=== PATIENT | female | born 1970 | race Caucasian/White ===

== ENCOUNTER 2016-09-30 10:25 | Emergency (ER) | payer OTHER ==
[2016-09-30 10:30] VITALS: BP 144/91; PULSE 88; RESP 20; TEMP 98.3
--- NOTE | 2016-09-30 10:50 | ED ---
General Adult HPI - General Chief complaint: Skin/Abscess/Foreign Body Stated complaint: HEMORRHOIDS Time Seen by Provider: 09/30/16 10:32 Source: patient, RN notes reviewed Mode of arrival: ambulatory Limitations: no limitations - History of Present Illness Initial comments: Patient's a 46-year-old female who presents emergency room today with a chief complaint of increased hemorrhoid pain. She does admit that over the last 9 days she's been having hemorrhoids. She states to a ruptured on their own but still having a third. States she has seen surgery in the past for this. Patient states that she's been using [id number]-[id number] medications with only little relief of the symptoms. Patient denies any other complaints or symptoms. Patient denies any recent fever, chills, shortness of breath, chest pain, back pain, abdominal pain, nausea or vomiting, numbness or tingling, dysuria or hematuria, constipation or diarrhea, headaches or visual changes, or any other complaints. - Related Data Home Medications Medication Instructions Recorded Confirmed Multivitamin [Multivitamins] 1 each PO DAILY 06/23/13 12/25/15 DULoxetine HCL [Cymbalta] 90 mg PO HS 03/02/14 12/25/15 Omeprazole [PriLOSEC] 20 mg PO HS 03/02/14 12/25/15 clonazePAM [KlonoPIN] 1 mg PO HS 03/02/14 12/25/15 traZODone HCL [Desyrel] 50 mg PO HS 03/02/14 12/25/15 Losartan [Cozaar] 1 tab PO DAILY 03/25/15 12/25/15 Montelukast Sodium [Singulair] 10 mg PO DAILY 03/25/15 12/25/15 Dicyclomine [Bentyl] 10 mg PO TID 12/25/15 12/25/15 Fluticasone Nasal Shepherd [Flonase 1 spray EA NOSTRIL DAILY 12/25/15 12/25/15 Nasal Shepherd] Previous Rx's Medication Instructions Recorded HYDROcodone/APAP 5-325MG [[place] 1 - 2 tab PO Q6HR PRN #15 tab 03/25/15 5-325] Ibuprofen [Motrin] 600 mg PO Q6HR PRN #20 tab 03/25/15 Hydrocortisone Acetate [Anusol-Hc] 25 mg RC DAILY #20 supp.rect 09/30/16 Hydrocortisone Pr Cream 1 applic RECTAL TID #1 tube 09/30/16 [Proctosol-Hc 2.5%] Allergies Allergy/AdvReac Type Severity Reaction Status Date / Time sulfamethoxazole Allergy Rash/Hives Verified 09/30/16 10:30 [From Bactrim] trimethoprim [From Bactrim] Allergy Rash/Hives Verified 09/30/16 10:30 Review of Systems ROS Statement: Those systems with pertinent positive or pertinent negative responses have been documented in the HPI. ROS Other: All systems not noted in ROS Statement are negative. Past Medical History Past Medical History: Hypertension Additional Past Medical History / Comment(s): stress incontinence,IBS, migraines , kidney stones History of Any Multi-Drug Resistant Organisms: None Reported Past Surgical History: Adenoidectomy, Breast Surgery, Hysterectomy, Tonsillectomy Additional Past Surgical History / Comment(s): D & C, rosalba breast reduction, rosalba carpal tunnel, laproscopy x 2 for endometriosis, Past Anesthesia/Blood Transfusion Reactions: No Reported Reaction Past Psychological History: Depression Smoking Status: Current some day smoker Past Alcohol Use History: Occasional Past Drug Use History: None Reported - Past Family History Father Family Medical History: Hypertension Additional Family Medical History / Comment(s): Kidney stones Mother Family Medical History: Hypertension Additional Family Medical History / Comment(s): Kidney stones. General Exam - General Exam Comments Initial Comments: General: The patient is awake and alert, in no distress, and does not appear acutely ill. Eye: Pupils are equal, round and reactive to light, extra-ocular movements are intact. No nystagmus. There is normal conjunctiva bilaterally. No signs of icterus. Ears, nose, mouth and throat: There are moist mucous membranes and no oral lesions. Neck: The neck is supple, there is no tenderness or JVD. Cardiovascular: There is a regular rate and rhythm. No murmur, rub or gallop is appreciated. Respiratory: Lungs are clear to auscultation, respirations are non-labored, breath sounds are equal. No wheezes, stridor, rales, or rhonchi. Gastrointestinal: Soft, non-distended, non-tender abdomen without masses or organomegaly noted. There is no rebound or guarding present. No CVA tenderness. Bowel sounds are unremarkable. Musculoskeletal: Normal ROM, no tenderness. Strength 5/5. Sensation intact. Pulses equal bilaterally 2+. Neurological: A&O x 3. CN II-XII intact, There are no obvious motor or sensory deficits. Coordination appears grossly intact. Speech is normal. Skin: Skin is warm and dry and no rashes or lesions are noted. Psychiatric: Cooperative, appropriate mood & affect, normal judgment. : [employer]END[employer] Leanne present for exam 1 cm nonthrombosed hemorrhoid located on the left. Limitations: no limitations Course Vital Signs 09/30/16 10:28 Temperature 98.3 F Pulse Rate 88 Respiratory 20 Rate Blood Pressure 144/91 O2 Sat by Pulse 98 Oximetry Medical Decision Making - Medical Decision Making Patient advised to continue high-fiber diet use stool softener. Advised follow- up with surgeon over the next 1-2 days. Disposition Clinical Impression: Hemorrhoid Disposition: HOME SELF-CARE Condition: Good Instructions: Hemorrhoids (ED) Additional Instructions: Please use medication as discussed. Please follow-up with general surgeon/ family doctor in the next 2 days of symptoms have not improved. Please return to emergency room if the symptoms increase or worsen or for any other concerns. Prescriptions: Hydrocortisone Acetate [Anusol-Hc] 25 mg RC DAILY #20 supp.rect Hydrocortisone Pr Cream [Proctosol-Hc 2.5%] 1 applic RECTAL TID #1 tube Referrals: Farhat Menjivar MD [Primary Care Provider] - 1-2 days Time of Disposition: 10:50
== END 2016-09-30 11:09 | disposition home or self-care (01) ==
LOC: EC 10:25
DX: K64.9 Unspecified hemorrhoids (principal); I10 Essential (primary) hypertension; K58.9 Irritable bowel syndrome, unspecified; F32.9 Major depressive disorder, single episode, unspecified; F17.200 Nicotine dependence, unspecified, uncomplicated; Z79.51 Long term (current) use of inhaled steroids; Z79.899 Other long term (current) drug therapy; Z88.2 Allergy status to sulfonamides
CPT/HCPCS: 99282

== ENCOUNTER → 2016-12-30 | Outpatient (CLI) | payer OTHER ==
--- NOTE | 2017-01-01 10:45 | MM ---
Reason for exam: screening (asymptomatic). Last mammogram was performed 1 year and 1 month ago. History: Patient had first child at age 41. Reductions of both breasts, 2004. Took hormonal contraceptives for 27 years beginning at age 14. Physical Findings: A clinical breast exam by your physician is recommended on an annual basis and results should be correlated with mammographic findings. MG 3D Screening Mammo W/Cad Bilateral CC and MLO view(s) were taken. Prior study comparison: December 05, 2015, bilateral MG 3d diag mammo w/cad DENIS. June 23, 2013, bilateral MG screening mammo w CAD. There are scattered fibroglandular densities. Benign skin calcifications anteriorly on both sides. No significant changes when compared with prior studies. ASSESSMENT: Negative, BI-RAD 1 RECOMMENDATION: Routine screening mammogram of both breasts in 1 year.
== END | disposition home or self-care (01) ==
LOC: RADMAMWWP 08:27
PROVIDERS: ATTEND Obstetrics & Gynecology
DX: Z12.31 Encounter for screening mammogram for malignant neoplasm of breast (principal)
CPT/HCPCS: 77063; G0202

== ENCOUNTER → 2018-04-20 | Outpatient (CLI) | payer OTHER ==
--- NOTE | 2018-04-21 11:33 | MM ---
Reason for exam: screening (asymptomatic). Last mammogram was performed 1 year and 4 months ago. History: Patient had first child at age 41. Reductions of both breasts, 2004. Took hormonal contraceptives for 27 years beginning at age 14. Physical Findings: A clinical breast exam by your physician is recommended on an annual basis and results should be correlated with mammographic findings. MG 3D Screening Mammo W/Cad Bilateral CC and MLO view(s) were taken. Prior study comparison: December 30, 2016, bilateral MG 3d screening mammo w/cad. December 05, 2015, bilateral MG 3d diag mammo w/cad DENIS. The breast tissue is heterogeneously dense. This may lower the sensitivity of mammography. There are benign appearing round calcifications bilaterally. There is no discrete abnormality. ASSESSMENT: Benign, BI-RAD 2 RECOMMENDATION: Routine screening mammogram of both breasts in 1 year.
== END ==
LOC: RADMAMWWP 08:44
PROVIDERS: ATTEND Obstetrics & Gynecology
DX: Z12.31 Encounter for screening mammogram for malignant neoplasm of breast (principal)
CPT/HCPCS: 77063; 77067

== ENCOUNTER → 2018-10-21 | Outpatient (CLI) | payer OTHER ==
--- NOTE | 2018-10-21 15:30 | XR ---
EXAMINATION TYPE: XR cervical spine limited DATE OF EXAM: 10/21/2018 COMPARISON: NONE HISTORY: 48-year-old female right lower neck stiffness for a few weeks TECHNIQUE: 3 views FINDINGS: No predental space widening or prevertebral soft tissue swelling. Alignment is maintained. There may be mild disc space narrowing at T1-T2. Mild uncovertebral joint spurring lower cervical spine. Normal odontoid view. IMPRESSION: Mild uncovertebral joint degenerative change lower cervical spine. No malalignment or prevertebral so ft tissue swelling.
[2018-10-21 19:42] LABS: T4, Free (Free Thyroxine) 0.9 ng/dL (0.80-1.80)
== END | disposition home or self-care (01) ==
LOC: LABWHC1 12:50
PROVIDERS: ATTEND Family Medicine
DX: M47.812 Spondylosis without myelopathy or radiculopathy, cervical region (principal); F33.0 Major depressive disorder, recurrent, mild; R51 Headache; I10 Essential (primary) hypertension
CPT/HCPCS: 36415; 72040; 84439; 84443; 84481

== ENCOUNTER → 2018-11-29 | Outpatient (CLI) | payer OTHER ==
[2018-11-29 17:55] LABS: Gliadin AB IgA, Deaminated POSITIVE (NEGATIVE); Gliadin AB IgA, Unit 135.7 U/mL; Gliadin AB IgG, Deaminated POSITIVE (NEGATIVE)
== END | disposition home or self-care (01) ==
LOC: LABWHC1 08:56
PROVIDERS: ATTEND Nurse Practitioner Family
DX: R10.9 Unspecified abdominal pain (principal)
CPT/HCPCS: 36415; 83516

== ENCOUNTER → 2020-03-28 | Outpatient (CLI) | payer BC ==
--- NOTE | 2020-03-29 13:41 | MM ---
Reason for exam: screening (asymptomatic). Last mammogram was performed 1 year and 11 months ago. History: Patient had first child at age 41. Reductions of both breasts, 2004. Took hormonal contraceptives for 27 years beginning at age 14. Physical Findings: A clinical breast exam by your physician is recommended on an annual basis and results should be correlated with mammographic findings. MG Screening Mammo w CAD Bilateral CC and MLO view(s) were taken. Prior study comparison: April 20, 2018, bilateral MG 3d screening mammo w/cad. December 30, 2016, bilateral MG 3d screening mammo w/cad. The breast tissue is heterogeneously dense. This may lower the sensitivity of mammography. There are benign appearing regional, round calcifications bilaterally. Asymmetric breast tissue left subareolar breast. There is no discrete abnormality. ASSESSMENT: Benign, BI-RAD 2 RECOMMENDATION: Routine screening mammogram of both breasts in 1 year.
== END | disposition home or self-care (01) ==
LOC: RADMAMWWP 16:22
PROVIDERS: ATTEND Obstetrics & Gynecology
DX: Z12.31 Encounter for screening mammogram for malignant neoplasm of breast (principal); Z80.3 Family history of malignant neoplasm of breast
CPT/HCPCS: 77067

== ENCOUNTER → 2020-11-08 | Outpatient (CLI) | payer OTHER ==
[2020-11-08 13:53] LABS: Basophils # (A) 0.1 k/uL (0-0.2); Basophils % (A) 1 %; Eosinophils # (A) 0.2 k/uL (0-0.7); Eosinophils % (A) 3 %; HCT 43.9 % (34.0-46.0); HGB 14.6 gm/dL (11.4-16.0); Lymphocytes # (A) 1.6 k/uL (1.0-4.8); Lymphocytes % (A) 21 %; MCH 33.1 pg (25.0-35.0); MCHC 33.2 g/dL (31.0-37.0); MCV 99.7 fL (80.0-100.0); Monocytes # (A) 0.4 k/uL (0-1.0); Monocytes % (A) 6 %; Neutrophils # (A) 5.2 k/uL (1.3-7.7); Neutrophils % (A) 68 %; Platelet Count 399 k/uL (150-450); RDW 12.5 % (11.5-15.5); WBC 7.6 k/uL (3.8-10.6)
--- NOTE | 2020-11-08 14:00 | CT ---
EXAMINATION TYPE: CT abdomen pelvis wo con DATE OF EXAM: 11/08/2020 COMPARISON: 09/25/2014 INDICATION: Right flank pain DLP: 1034 mGycm, Automated exposure control for dose reduction was used. CONTRAST: 0 mL of Isovue 300. Study performed without Oral Contrast TECHNIQUE: Axial images were obtained from above the diaphragm to the pubic rami in the axial plane a t 5 mm thick sections. Reconstructed images are reviewed on the computer in the coronal plane. FINDINGS: Limited CT sections are obtained the lung bases. The lung bases are clear. CT ABDOMEN: Liver: Normal Spleen: Normal Pancreas: Normal Adrenal glands: The adrenal glands are normal. Gallbladder: Normal Kidneys: No masses are evident. No hydronephrosis is present. No cysts are present. Multiple bilat eral renal stones are present. The large calcification superior pole left kidney measures 0.3 cm. The largest on the right inferior pole as well as the superior pole measures 0.3 cm. Multiple additional nonobstructing renal stones are also present, small 0.3 cm. Aorta: Vascular calcification is within the aorta. Inferior vena cava: Normal. CT PELVIS: Loops of bowel within the abdomen and pelvis are normal. The study is without oral contrast limit ing evaluation. Appendix: Not identified. No dilated tubular structure or inflammatory changes are evident. Urinary bladder: Normal. Genitourinary structures: Uterus and ovaries are not identified. Osseous structures: No suspicious lytic or sclerotic lesions. IMPRESSIONS: 1. Multiple bilateral nonobstructing renal stones. The largest calcifications in the bilateral kidne ys each measure 0.3 cm.
[2020-11-08 14:04] LABS: Potassium 4.4 mmol/L (3.5-5.1)
== END | disposition home or self-care (01) ==
LOC: RADCTMAIN 12:52
PROVIDERS: ATTEND Family Medicine
DX: N20.0 Calculus of kidney (principal)
CPT/HCPCS: 36415; 74176; 80048; 85025

== ENCOUNTER → 2021-01-10 | Outpatient (CLI) | payer OTHER ==
--- NOTE | 2021-01-11 06:08 | MR ---
EXAMINATION TYPE: MR cervical spine wo con DATE OF EXAM: 01/10/2021 COMPARISON: None HISTORY: Neck pain, headaches Multiplanar multiecho imaging of the cervical spine without contrast. Vertebra have normal alignment. Disc spaces are fairly normal for age. There is a small posterior dis c herniation at C5-6 in the midline. There is developmentally adequate spinal canal. There is no spin al stenosis. Spinal canal measures 8 mm at C5-6. Brainstem is intact. Cervical spinal cord has normal signal pattern. There is no edema. There is no evidence of cervical paraspinal mass. IMPRESSION: C5-6 mild posterior disc herniation. No spinal stenosis.
== END | disposition home or self-care (01) ==
LOC: RADMRIMAIN 11:25
PROVIDERS: ATTEND Orthopaedic Surgery
DX: M50.322 Other cervical disc degeneration at C5-C6 level (principal)
CPT/HCPCS: 72141

== ENCOUNTER → 2021-02-10 | Outpatient (CLI) | payer OTHER ==
[2021-02-10 09:57] VITALS: BP 155/104; PULSE 89; RESP 18
--- NOTE | 2021-02-10 09:57 | P.PAINCN ---
History of Present Illness - Reason for Consult Consult date: 02/10/21 - History of Present Illness This is 50 years old female with a history of severe neck pain with radiation to the right upper extremity, started 3 years ago, denies any initiating event, and she reported that the pain is constant and increases with any activity, with the quality of life, seated with numbness and tingling sensation, intensity of the pain increased over time, patient done physical therapy and chiropractics with only minimal or no benefit from it, she used pain medication Motrin and Kemmerer without any benefit,she denies any change in the bowel movement or urination she denies any fever or night sweats Past Medical History Past Medical History: Hypertension Additional Past Medical History / Comment(s): stress incontinence,IBS, migraines , kidney stones History of Any Multi-Drug Resistant Organisms: None Reported Past Surgical History: Adenoidectomy, Breast Surgery, Hysterectomy, Tonsi llectomy Additional Past Surgical History / Comment(s): D & C, rosalba breast reduction, rosalba carpal tunnel, laproscopy x 2 for endometriosis, Past Anesthesia/Blood Transfusion Reactions: No Reported Reaction Past Psychological History: Depression Past Alcohol Use History: Occasional Past Drug Use History: None Reported - Past Family History Father Family Medical History: Hypertension Additional Family Medical History / Comment(s): Kidney stones Mother Family Medical History: Hypertension Additional Family Medical History / Comment(s): Kidney stones. Medications and Allergies Home Medications Medication Instructions Recorded Confirmed Type DULoxetine HCL [Cymbalta] 90 mg PO DAILY 03/02/14 09/30/16 History Omeprazole [PriLOSEC] 20 mg PO DAILY 03/02/14 09/30/16 History Losartan [Cozaar] 50 mg PO DAILY 03/25/15 09/30/16 History Montelukast Sodium [Singulair] 10 mg PO DAILY 03/25/15 09/30/16 History ALPRAZolam [Xanax] 0.25 mg PO Q8HR PRN 09/30/16 09/30/16 History Ibuprofen [Motrin] 800 mg PO Q8H PRN 09/30/16 09/30/16 History HYDROcodone/APAP 10-325MG [[place] 1 tab PO Q8H PRN 02/10/21 02/10/21 History 10-325] Meloxicam 15 mg PO DAILY 02/10/21 02/10/21 History Mirtazapine [Remeron] 30 mg PO HS 02/10/21 02/10/21 History Allergies Allergy/AdvReac Type Severity Reaction Status Date / Time sulfamethoxazole Allergy Rash/Hives Verified 02/10/21 09:44 [From Bactrim] trimethoprim [From Bactrim] Allergy Rash/Hives Verified 02/10/21 09:44 Physical Exam Vitals: Intake and Output 02/09/21 02/10/21 02/10/21 22:59 06:59 14:59 Other: Weight 96.162 kg Physical Examinations : -Constitutiona : Cooperative , not in acute distress . -HEENT : nech : supple , no Lymphadenopathy , normal thyroid size . : eyes : no ptosis , no icterus, no photophobia . - neurologic : Cranial nerve II to XII intact , no focal neurological deffecit . -psychatric : alert , oriented X 3 , appropriate affect , intact judgment and insight . -Lymphatic : no Lymphadenopathy . - musculoskeltal : Cervical Spine motor stregnth in the deltoid and biceps, normal right side , normal Left side motor stregnth biceps and the wrist extensors normal right side ,normal left side . motor stregnth in the triceps muscle . normal Right side , normal Left side deep tendon reflexes normal at the biceps , normal at Brachioradialis , normal at triceps. cervical facet loading test: Positive right Spurling test= positive Right , positive left. Neck distraction test= positive Right Radha sign= positive right . Lumber spine moter stegnth lower extremities ,thigh and legs 5/5 Right side , 5/5 Left side Results Comments: MRI of the cervical spine= C5 6 disc herniation Assessment and Plan Plan: Assessment and plan=1-cervical radiculopathy. 2-cervical disc herniation. Patient could benefit from cervical epidural steroid injection at C5 6 right paramedian approach Time with Patient: Greater than 30 PQRS Measure Charge Sheet Measure #130: Documentation of Current Meds in Medical Chart: Patient's medications documented in chart Measure #226: Tobacco Use: Screen & Cessation Intervention: Pt not a tobacco user Measure #111: Pneumonia Vaccination: Pneumococcal vaccine NOT administered or previously given Measure #47: Advance Care Plan: Advance care planning discussed & documented, pt chose/unable to give Measure #412: Opioid Treatment Agreement: No documentation of signed opioid treatment agreement Measure #408: Opioid Therapy Follow-up Evaluation: Patient had NO f/u eval minimum every 3 months during opioid therapy Measure #317: Preventitive Care & Scrn High Bld Press & F/U: Pre-hypertensive or hypertensive BP documented, pt will f/u with PCP Measure #128: Body Mass Index (BMI) Screening & Follow-up: BMI documented ABOVE normal parameters - f/u documented Measure #131: Pain Assessment & Follow-up: Pain positive & plan documented, Follow-up scheduled Measure #431: Unhealthy Alcohol Use Preventative Care & Scrn: Patient not identified as an unhealthy alcohol user PQRS Narrative: Smoking Status Current some day smoker Home Medications: Ambulatory Orders DULoxetine HCL [Cymbalta] 90 mg PO DAILY 03/02/14 Omeprazole [PriLOSEC] 20 mg PO DAILY 03/02/14 Losartan [Cozaar] 50 mg PO DAILY 03/25/15 Montelukast Sodium [Singulair] 10 mg PO DAILY 03/25/15 ALPRAZolam [Xanax] 0.25 mg PO Q8HR PRN 09/30/16 Ibuprofen [Motrin] 800 mg PO Q8H PRN 09/30/16 HYDROcodone/APAP 10-325MG [[place] 10-325] 1 tab PO Q8H PRN 02/10/21 Meloxicam 15 mg PO DAILY 02/10/21 Mirtazapine [Remeron] 30 mg PO HS 02/10/21
== END ==
LOC: PNWHC3 09:12
PROVIDERS: ATTEND Specialist
DX: M50.10 Cervical disc disorder with radiculopathy, unspecified cervical region (principal); I10 Essential (primary) hypertension; F32.A Depression, unspecified; Z79.899 Other long term (current) drug therapy; Z88.2 Allergy status to sulfonamides
CPT/HCPCS: 99202

== ENCOUNTER → 2021-04-07 | Outpatient (CLI) | payer OTHER ==
--- NOTE | 2021-04-07 13:43 | CT ---
EXAMINATION TYPE: CT cervical spine without contrast DATE OF EXAM: 04/07/2021 COMPARISON: MRI dated 01/10/2021 HISTORY: Cervicalgia. Neck pain. Surgical planning. CT DLP: 426.6 mGycm Automated exposure control for dose reduction was used. TECHNIQUE: CT scan of the cervical spine is obtained without contrast, axial images are obtained, sa gittal and coronal reformatted images are also reviewed. FINDINGS: Minimal anterolisthesis of C4 over C5, likely degenerative. No definite vertebral body collapse or ac match-e-be-n[place]she-wish band displaced fracture. Unremarkable atlantoaxial and atlantooccipital articulations. Severe right C3 -4, right C4-5 and right C5-6 facet osteoarthropathy. Right C3-4, right C4-5 and right C5-6 uncovertebral osteoarthropathy with tiny posterior osteophytosi s at C5-6 level. Bilateral T1-2 facet osteoarthropathy with milder multilevel facet osteoarthropathy. At C2-3 level: No significant central spinal canal stenosis or neuroforaminal stenosis. At C3-4 level: Severe right-sided facet osteoarthropathy, causing no significant central spinal canal stenosis and moderate right neuroforaminal stenosis. At C4-5 level: Severe right-sided facet osteoarthropathy, causing no significant central spinal canal stenosis and moderate right neuroforaminal stenosis. At C5-6 level: Posterior disc osteophyte complex, associated with right facet osteoarthropathy, causi ng mild central spinal canal stenosis and moderate right neuroforaminal stenosis. At C6-7 level: No significant bony central spinal canal stenosis or neuroforaminal stenosis. Slightly heterogeneous thyroid gland, please correlate clinically and with thyroid hormones. No lorelei sunshine lesion. Hypopneumatized right mastoid air cells. IMPRESSION: Degenerative changes of the cervical spine with multilevel severe facet osteoarthropathy and right-si ded neuroforaminal stenosis as detailed above.
== END | disposition home or self-care (01) ==
LOC: RADCTMAIN 10:39
PROVIDERS: ATTEND Orthopaedic Surgery
DX: Z01.818 Encounter for other preprocedural examination (principal); M47.812 Spondylosis without myelopathy or radiculopathy, cervical region; M48.02 Spinal stenosis, cervical region
CPT/HCPCS: 72125

== ENCOUNTER → 2021-04-28 | Outpatient (CLI) | payer OTHER | END | disposition home or self-care (01) | LOC: LABPAT 10:14 | PROVIDERS: ATTEND Orthopaedic Surgery | DX: Z01.812 Encounter for preprocedural laboratory examination (principal); M47.812 Spondylosis without myelopathy or radiculopathy, cervical region | CPT/HCPCS: 87070 ==

== ENCOUNTER → 2021-05-08 | Outpatient (CLI) | payer OTHER ==
--- NOTE | 2021-05-08 14:21 | MM ---
Reason for exam: screening (asymptomatic). Last mammogram was performed 1 year and 1 month ago. History: Patient had first child at age 41. Reductions of both breasts, 2004. Took hormonal contraceptives for 27 years beginning at age 14. Taking other hormone beginning at age 49. Physical Findings: A clinical breast exam by your physician is recommended on an annual basis and results should be correlated with mammographic findings. MG Screening Mammo w CAD Bilateral CC and MLO view(s) were taken. Prior study comparison: March 28, 2020, bilateral MG screening mammo w CAD. April 20, 2018, bilateral MG 3d screening mammo w/cad. There are scattered fibroglandular densities. Finding: There are typically benign round, regional calcifications in the anterior position of both breasts. There is no discrete abnormality. ASSESSMENT: Benign, BI-RAD 2 RECOMMENDATION: Routine screening mammogram of both breasts in 1 year.
== END | disposition home or self-care (01) ==
LOC: RADMAMWWP 08:02
PROVIDERS: ATTEND Obstetrics & Gynecology
DX: Z12.31 Encounter for screening mammogram for malignant neoplasm of breast (principal)
CPT/HCPCS: 77067

== ENCOUNTER 2021-05-09 10:38 | Day surgery (SDC) | payer OTHER ==
[2021-05-06 13:41] VITALS: BMI 35.5
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
[~2021-05-09 10:38] MED LIST: ACETAMINOPHEN TAB 500 MG TAB PO PRN; GABAPENTIN 300 MG CAP PO PRN; HYDROmorphone 0.5 MG/0.5 ML SYRINGE IVP PRN; LACTATED RINGERS 1,000 ML IV SCH; MIDAZOLAM 2 MG/2 ML VIAL IV PRN; ONDANSETRON 4 MG/2 ML VIAL IVP PRN; TRANEXAMIC ACID IN NACL,ISO-OS 1,000 MG in SALINE 1 100ML.BAG IVPB PRN
[2021-05-09 11:33] LABS: Basophils # (A) 0.1 k/uL (0-0.2); Basophils % (A) 1 %; Eosinophils # (A) 0.2 k/uL (0-0.7); Eosinophils % (A) 3 %; HGB 14.5 gm/dL (11.4-16.0); Lymphocytes # (A) 1.7 k/uL (1.0-4.8); Lymphocytes % (A) 26 %; MCH 33.4 pg (25.0-35.0); MCHC 33.6 g/dL (31.0-37.0); MCV 99.4 fL (80.0-100.0); Mean Platelet Volume 7.1; Monocytes # (A) 0.4 k/uL (0-1.0); Monocytes % (A) 6 %; Neutrophils % (A) 62 %; Platelet Count 336 k/uL (150-450); RBC 4.32 m/uL (3.80-5.40); RDW 12.1 % (11.5-15.5); WBC 6.4 k/uL (3.8-10.6)
[2021-05-09 11:40] LABS: Prothrombin Time 10.7 sec (9.0-12.0)
[2021-05-09 11:48] LABS: Calcium 9.1 mg/dL (8.4-10.2); Potassium 4.2 mmol/L (3.5-5.1)
--- NOTE | 2021-05-09 12:27 | P.PN ---
Progress Note - Text Progress Note Date: 05/09/21 History and Physical UPDATE I have seen and examined the patient and reviewed the history and physical. There appear to be no significant changes in the patient's current medical status as outlined in the current History and Physical.
[2021-05-09] MEDS ORDERED: HYDROmorphone (PF) 1 MG/ML ONE (12:39)
[2021-05-09] MEDS ORDERED: MIDAZOLAM 2 MG/2 ML VIAL ONE (12:39)
[2021-05-09] MEDS ORDERED: TRANEXAMIC ACID IN NACL,ISO-OS 1,000 MG/100 ML BAG ONE (12:39)
[2021-05-09] MEDS ORDERED: fentaNYL (PF) 50 MCG/ML 2 ML AMP ONE (12:39)
[2021-05-09] MEDS ORDERED: SUCCINYLCHOLINE CHLORIDE 100 MG/5 ML SYR IV ONE (12:39)
[2021-05-09] MEDS ORDERED: PROPOFOL 10 MG/ML 20 ML VIAL IV ONE (12:39)
[2021-05-09] MEDS ORDERED: hydrALAZINE HCL 20 MG/ML 1 ML VIAL ONE (12:39)
[2021-05-09] MEDS ORDERED: LIDOCAINE 1% INJ 10MG/ML (20 ML MDV) ONE (12:39)
[2021-05-09] MEDS ORDERED: ROCURONIUM 10 MG/ML (5 ML VIAL) IV ONE (12:39)
[2021-05-09] MEDS ORDERED: LABETALOL 5 MG/ML VIAL MDV ONE (12:39)
[2021-05-09] MEDS ORDERED: GELATIN SPONGE,ABSORB (LARGE) 1 EACH SPONGE TOPICAL ONE (13:34)
[2021-05-09] MEDS ORDERED: THROMBIN (RECOMBINANT) 5,000 UNIT VIAL TOPICAL ONE (13:40)
[2021-05-09] MEDS ORDERED: LACTATED RINGERS 1,000 ML IV ONE (14:31)
--- NOTE | 2021-05-09 14:49 | FL ---
EXAMINATION TYPE: FL guidance operating room, XR cervical spine limited DATE OF EXAM: 05/09/2021 CLINICAL HISTORY: Neck pain. TECHNIQUE: Fluoroscopy. Intraoperative limited views cervical spine. COMPARISON: CT cervical spine the 2021. FINDINGS: Fluoroscopic guidance was provided during cervical fusion procedure performed by Dr. Danni laughlin. A total of 71 seconds of fluoroscopic time was utilized during the procedure and 8 spot intra operative images are acquired. Intraoperative images obtained show placement of metallic endplate material at the C5-C6 disc space a fter partial osteotomy and presumed discectomy. Alignment is stable on the intraoperative images obta ined. IMPRESSION: As Above.
[2021-05-09 14:58] VITALS: RESP 16; TEMP 97.2
--- NOTE | 2021-05-09 15:08 | P.PN ---
Progress Note - Text Progress Note Date: 05/09/21 Postop: . Patient seen and examined they are doing well. Their pain is under control at this time. They are moving all 4 extremities without any issues. Vital signs are stable.. They are currently recovering and will be transferred to the floor once deemed stable by the PACU team and anesthesiologist. No Other issues at this time they deny fever chills shortness of breath or chest pain. [C collar in place, well fitting] spoke to ENT over the phone and recommended icing as well as avoiding chewy foods well her tongue heels she is otherwise stable for home as there is nothing for him to do for this patient will be discharged to recovery phase when stable and discharged home when stable per nursing and anesthesia in the recovery unit.
[2021-05-09] MEDS ORDERED: HYDROcodone/APAP 5-325MG 1 EACH TAB ONE (16:03)
[2021-05-09 16:29] VITALS: BP 162/98; PULSE 76
--- NOTE | 2021-05-09 16:50 | P.OP ---
Date of Procedure: 05/09/21 Preoperative Diagnosis: 1. 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 Right Upper extremity numbness 3. Right Upper extremity radiculopathy 4. Right lower extremity weakness Postoperative Diagnosis: 1. 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 Right Upper extremity numbness 3. Right Upper extremity radiculopathy 4. Right lower extremity weakness 5. Distal tip tongue bite injury Procedure(s) Performed: 1. C5-6 total disc replacement 2. Intraoperative neuromonitoring 3. Interpretation of intraoperative fluoroscopy <1 hr Implants: Pro Disc C Large Deep 6 mm Anesthesia: GETA Surgeon: Ryan Quinones Kapok Machine Operator #1: Karin Kat (Was present and assisted in opeining, positioning, implatation decompression, closure, and dressing placement) Estimated Blood Loss (ml): 50 IV fluids (ml): 500 Urine output (ml): 0 Pathology: none sent Condition: stable Disposition: PACU Indications for Procedure: viri Romero is presenting for evaluation of cervical pain. It was my pleasure to have seen and examined Nafisa Romero. In our visit today we have had a chance to go over subjective complaints, physical examination findings and treatments including the natural course history without intervention and various interventional options. The patients imaging demonstrates Xray: overall alignment is fairly well maintained. There is facet arthropathy that is noted from C2 to C4 on the right hand side was worse than on the left-hand side. There are no fractures or dislocations. Coronal and sagittal alignment is maintained. MRI: This is reviewed and demonstrates large HNP that appears A/C in nature with moderate to severe central and b/l foraminal stenosis at C5-6 noted. There is no myelomalacia at this time, however this is cord contact and displacement. NO fractures or other dislocations noted. Remaining levels within reasonable limits. On physical exam, Nafisa Romero demonstrates C5-C6 dermatomal deficit with hyperreflexia along with upper and lower extremity weakness. I have explained to the patient that as their condition progresses it will cause further neurological deficits and eventual paralysis. Based on the patients imaging, physical exam, and the rapid progression and disabling nature of their symptoms, at this time I recommend surgery in the form or a: C5-C6 disc replacement . I discussed the risk and benefits of this procedure at length with Nafisa Romero. The patient agreed to considered pursuing the procedure abovementioned. Prior to surgery, she should follow up with her PCP (Cardio, ID, IM etc) for clearance. Questions were invited and answered, and the patient wishes to proceed as outlined below. Currently, I am recommendin.C5-C6 disc replacement 2.Follow up with PCP for surgical clearance 3.Review of surgical risks and benefits as well as an educational packet on the proposed surgical procedure. Description of Procedure: The patient was seen and examined in the preoperative area. All preoperative protocols were followed. Informed consent was obtained risks and benefits of the procedure were discussed at length. Risks including bleeding infection damage to the surrounding tissue and risk of reoperation were discussed with the patient. Risk of anesthesia up to and including was a discussed with the patient. These are outlined in the risk review. They were willing to accept these risks and all of the risks of surgery. The patient was given a weight- based dose of antibiotics in the form of Ancef 2 g. The patient was seen and evaluated by the anesthesia team who deemed them fit for surgery. The site was marked, the patient was willing to proceed with the procedure. The patient was transferred to the operative suite by the Department of anesthesia. They were then drifted off to sleep by the department anesthesia and GETA was performed. The patient tolerated this well. Once confirmation of lines and ventilation the patient was transferred to a supine on the flattop Marcial table. Shoulder roll was placed and the shoulders were taped gently down.. All bony prominences including wrists, elbows, axilla, chest, hips, and thighs, and feet were padded very well. Special attention was paid to the genitalia and these were padded accordingly. SCDs were placed on bilateral lower extremities and were connected. Arms were well padded and placed placed at her side thumbs up well-padded. Once in position, again we confirmed good ventilation capabilities and that lines were running appropriately. The patient's anterior cervical spine was then exposed. 1010s were placed outlining the incision site. Standard alcohol was used to clean the incision site and allowed to dry. C-arm was used to biomark the patient and confirm level for incision which was marked with a skin marker. Operative briefing was performed with all teams and everyone in agreement to proceed. The patient was then prepped and draped in a normal sterile fashion. Timeout was then performed and all parties were in agreement with the procedure to be performed. Transverse skin incision was then made over the previously marked area and a standard right-sided Linn-Lopez approach to the cervical spine was performed. Dissection was taken down subcutaneously and a transverse incision was made in the platysma muscle. Then developed a plane between the strap muscles and the SCM laterally and palpated for the carotid artery and to get laterally. We then dissected down to the anterior longitudinal ligament ligament using Kitners. We then used a blunt probe and lateral fluoroscopic image to confirm our level of interest. We confirmed C5-C6. This was then marked with the Bovie. We then performed dissection subperiosteal dissection of the C5-C6 space making sure to visualize the uncovertebral joints bilaterally. We took care not to violate the level above or below. Under fluoroscopic guidance was then placed parallel pins in the C5 and C6 respectively we then placed the distractor and perform parallel distraction. Lambert rongeur was used to remove the bulk of the intervertebral disc at this level the disc had somewhat delaminated from the vertebral body here and there was a large disc herniation. Then used curettes for removal of the disc and scraping of the endplates to remove any cartilaginous material. We made sure the endplates were completely bare but relatively unviolated we performed minimal burring of the uncovertebral joints to allow for a squared off disc space. We then performed minimal drilling of the posterior aspect of this inferior endplate of C5 posteriorly to remove the disc osteophyte complex in this region. 60 up-biting curette was then used to enter the PLL and the PLL was then resected using 6 up- biting curette and 3 Kerrison. Follow-up performed bilateral foraminotomies using Kerrison rongeur. The perform meticulous hemostasis as well. We then used a sizer and lateral fluoroscopic imaging to size the implants to a large deep. We then took an AP image with the guide in place to ensure that it was midline and correctly rotated. Once we confirmed this with an performed a caref ul burring under lateral fluoroscopic guidance of the leah. Once this was performed with then passed the chisel over the guide in the leah to ensure a good cut. The guide was then removed and we cleaned the leah with the keel hall cleaner. We then irrigated copiously the disc space placed FloSeal the posterior lateral areas to ensure hemostasis. Motors were run and they were stable. We then selected the implants and impacted into place under lateral fluoroscopic guidance once it was in good position the web application tester was removed. The [place] pins were then removed and bone wax placed in the void was placed bone wax over any open areas of bone anteriorly. We placed FloSeal in the posterior lateral gutters and irrigated the area. Final AP and lateral fluoroscopic images were taken confirming good placement of the hardware and good maintenance of anatomy. Motors were run again and they were stable. We then copiously irrigated the wound with normal sterile saline. Surgicel was placed deep within the wound. We then proceeded with layered closure first the platysma with 3-0 Vicryl low by 3-0 Vicryl in the subcu tissue followed by 40 strata fix and the subcuticular tissue. The wound was then cleaned and sterilely dressed with exofin tape and glue. The glue was allowed to dry and then a dressing was placed of Telfa and Tegaderm. It was noted after the drapes were removed that there was a laceration to the patient's tongue distally due to bite block misplacement. ENT was consult did and we discussed the case with them they stated that there was no need for any intervention and that the patient should avoid chewing foods for a while and use ice to help with pain and that it would eventually heal. The patient was transferred back to their hospital bed atraumatically. Patient was then awakened and extubated by the department of anesthesia having tolerated the procedure very well with no complications. They were transferred to the postoperative care unit in stable condition.
== END 2021-05-09 16:58 | disposition home or self-care (01) ==
LOC: OR 10:38 → EDSTATUS 12:30 → OR 16:58
PROVIDERS: ATTEND Orthopaedic Surgery
DX: M47.22 Other spondylosis with radiculopathy, cervical region (principal); S01.552A Open bite of oral cavity, initial encounter; M25.78 Osteophyte, vertebrae; Z90.710 Acquired absence of both cervix and uterus; K21.9 Gastro-esophageal reflux disease without esophagitis; M19.90 Unspecified osteoarthritis, unspecified site; N39.3 Stress incontinence (female) (male); K58.9 Irritable bowel syndrome, unspecified; G43.909 Migraine, unspecified, not intractable, without status migrainosus; Z87.442 Personal history of urinary calculi; K90.0 Celiac disease; F41.9 Anxiety disorder, unspecified; F43.0 Acute stress reaction; F32.A Depression, unspecified; F17.210 Nicotine dependence, cigarettes, uncomplicated; Z98.890 Other specified postprocedural states; Z82.49 Family history of ischemic heart disease and other diseases of the circulatory system; Z84.1 Family history of disorders of kidney and ureter; Z79.899 Other long term (current) drug therapy; Z79.1 Long term (current) use of non-steroidal anti-inflammatories (NSAID); Z79.891 Long term (current) use of opiate analgesic; Z88.2 Allergy status to sulfonamides
CPT/HCPCS: 86900; 86901; 80048; 85025; 85610; 86850; 72040; 36415; 22856; C1713; C1762; J2250; J0360; J0690; J2405; J2001; J3010; J1170 ×2; J0330; J2704

== ENCOUNTER 2021-06-06 19:09 | Day surgery (SDC) | payer OTHER ==
--- NOTE | 2021-06-06 11:11 | P.HPOR ---
History of Present Illness H&P Date: 06/06/21 Chief Complaint: Wound dehiscence w/o infection 50 yo female presented to my office yesterday with c/o her anterior wound opening up on the latera aspect. There has been no drainage or purulence form this. She was seen PO week2 with some healing issues however these have become worse and her skin has essentially not healed now after her TDR. She is otherwise doing very well w/o neck or arm pain. C/o no fever, chills or other issues. There is no drainage from the wound but the skin edges have opened up on the latera aspect and need to be repaired. She has no issues with swallowing or speech. Review of Systems 14 points review of systems completed and as stated in HPI, all other systems reviewed are negative. All systems: negative Constitutional: Reports as per HPI Past Medical History Past Medical History: Hypertension Additional Past Medical History / Comment(s): stress incontinence,IBS, polo liv, kidney stones History of Any Multi-Drug Resistant Organisms: None Reported Past Surgical History: Adenoidectomy, Breast Surgery, Hysterectomy, Tonsillectomy Additional Past Surgical History / Comment(s): D & C, rosalba breast reduction, rosalba carpal tunnel, laproscopy x 2 for endometriosis, Past Anesthesia/Blood Transfusion Reactions: No Reported Reaction Past Psychological History: Depression Smoking Status: Never smoker Additional Past Alcohol Use History / Comment(s): some day smoker-states 1-2 cigarrettes if she is out and having a drink. - Past Family History Father Family Medical History: Hypertension Additional Family Medical History / Comment(s): Kidney stones. Mother Family Medical History: Hypertension Additional Family Medical History / Comment(s): Kidney stones. Medications and Allergies Home Medications Medication Instructions Recorded Confirmed Type DULoxetine HCL [Cymbalta] 90 mg PO QAM 03/02/14 05/06/21 History Omeprazole [PriLOSEC] 20 mg PO QAM 03/02/14 05/06/21 History Losartan [Cozaar] 50 mg PO QAM 03/25/15 05/06/21 History Montelukast Sodium [Singulair] 10 mg PO DAILY 03/25/15 05/06/21 History ALPRAZolam [Xanax] 0.25 mg PO Q8HR PRN 09/30/16 05/06/21 History Ibuprofen [Motrin] 800 mg PO Q8H PRN 09/30/16 05/06/21 History HYDROcodone/APAP 10-325MG [[place] 1 tab PO Q8H PRN 02/10/21 05/06/21 History 10-325] Meloxicam 15 mg PO DAILY 02/10/21 05/06/21 History Mirtazapine [Remeron] 30 mg PO HS 02/10/21 05/06/21 History Progesterone, Micronized 200 mg PO HS 05/06/21 05/06/21 History [Progesterone] Cyclobenzaprine [Flexeril] 5 mg PO TID #90 tablet 05/09/21 Rx Gabapentin 300 mg PO BID #90 cap 05/09/21 Rx HYDROcodone/APAP 5-325MG [[place] 1 tab PO Q4HR PRN #56 tab 05/09/21 Rx 5-325] Indomethacin 25 mg PO BID #30 capsule 05/09/21 Rx cefaDROXiL [Duricef] 500 mg PO Q12HR 3 Days #6 cap 05/09/21 Rx Allergies Allergy/AdvReac Type Severity Reaction Status Date / Time sulfamethoxazole Allergy Rash/Hives Verified 05/06/21 13:20 [From Bactrim] trimethoprim [From Bactrim] Allergy Rash/Hives Verified 05/06/21 13:20 Physical Examination Osteopathic Statement: *. No significant issues noted on an osteopathic structural exam other than those noted in the History and Physical/Consult. PHYSICAL EXAMINATION: Vitals: Stable General: Awake, alert, appropriate for age, in no acute distress. HEENT: No unusual neck masses around region of lateral neck triangle, thyroid, supraclavicular groove. Extremities: Skin warm and dry without no acute lesions, coloration, temperature, skin intact, no tenderness or erythema. Integument: Hairy patches: Absent Dorsal skin dimples: Absent Cafe au lait spots: Absent Surgical incisions: Wound dehiscence about the lateral aspect of the anterior cervical spine wound. There is no purulence or drainage from this area but the skin edges have dehisced and there is visible suture deep in this area. No evidence of infection. Palpation: No tenderness to palpation VASCULAR STATUS : Wrist Pulses: 2/4 bilateral radial and ulnar Pedal Pulses: 2/4 bilateral DP and PT Color: Normal Edema: None NEUROLOGIC EXAMINATION: Mental Status: Awake and alert, fully oriented, with normal attention, concentration and memory, and fluent, appropriate speech. Cranial Nerves: I: Olfactory not tested. II: Visual acuity normal, no visual field deficit noted with confrontation. III,IV: Normal pupillary reflexes & intact extraocular movements without nystagmus. V,: Intact symmetrical facial sensation. VII: Intact symmetrical facial motor movement VIII: Hearing intact. IX,X: Intact gag, swallow, & normal voice. XI: Sternocleidomastoid, trapezius function intact. XII: Tongue midline with normal movements. Special Tests: L'hermitte's Sign: Absent Spurling'Sign: Absent Bilateral Cubital percussion test: Absent Bilateral Parviz-Tinel sign - Carpal region: Absent Bilateral Straight Leg Raising: Absent Bilateral Motor Exam (0-5/5, N/T) STRENGTH UPPER EXTREMITY Shoulder Abd (Not part of ELIN Motor score): RIGHT 5 LEFT 5 Elbow Flexors: RIGHT 5 LEFT 5 Elbow Extensor: RIGHT 5 LEFT 5 Wrrist Dorsiflexors: RIGHT 5 LEFT 5 Finger Abductor: RIGHT 5 LEFT 5 Syrup Maker: RIGHT 5 LEFT 5 LOWER EXTREMITY Hip Flexor (Not part of ELIN Motor Score): RIGHT 5 LEFT 5 Knee Flexor: RIGHT 5 LEFT 5 Knee Extensor: RIGHT 5 LEFT 5 Ankle Dorsiflexion: RIGHT 5 LEFT 5 Ankle Plantarflexion: RIGHT 5 LEFT 5 EHL: RIGHT 5 LEFT 5 FHL: RIGHT 5 LEFT 5 ELIN Motor Score: RIGHT 50/50 LEFT 50/50 REFLEXES Biecp: RIGHT 2 LEFT 2 Tricep: RIGHT 2 LEFT 2 Brachioradialis: RIGHT 2 LEFT 2 Patellar: RIGHT 2 LEFT 2 Achilles: RIGHT 2 LEFT 2 Pathological Reflexes Sampson's: RIGHT Absent LEFT Absent Babinski: RIGHT Absent LEFT Absent Clonus: RIGHT None LEFT None SENSORY Joint Position: Intact bilaterally Vibration Intact bilaterally Pain and LT sense Intact C5-T1 and L2-S1 Dermatomal deficit None Results Labs pending. X-rays from office demonstrate good placement of hardware with no other issues noted. Assessment and Plan Assessment: 50-year-old female status post C5-C6 TDR with wound dehiscence Plan: Spine Surgery Risk Review Nafisa Romero is a 50-year-old female presenting for evaluation of postoperative wound dehiscence. It was my pleasure to have seen and examined Nafisa. In our visit today we have had a chance to go over subjective complaints, physical examination findings and treatments including the natural course history without intervention and various interventional options. The patients imaging demonstrates well-placed C5-C6 total disc replacement no issues. On physical exam, Nafisa demonstrates surgical wound dehiscence on the lateral aspect of the anterior wound approximately 1 cm. I have explained to the patient that as their condition progresses it will cause further neurological deficits and eventual paralysis. Based on the patients imaging, physical exam, and the rapid progression and disabling nature of their symptoms, at this time I recommend surgery in the form or a: Wound revision irrigation debridement and primary closure. I discussed the risk and benefits of this procedure at length with Nafisa. The patient agreed to considered pursuing the procedure abovementioned. Prior to surgery, she should follow up with her PCP (Cardio, ID, IM etc) for clearance. Questions were invited and answered, and the patient wishes to proceed as outlined below. Currently, I am recommendin. Wound revision irrigation debridement and primary closure 2. Follow up with PCP for surgical clearance 3. Review of surgical risks and benefits as well as an educational packet on the proposed surgical procedure. Risks: All surgical procedures come with inherent risks, including those related to positioning, anesthesia, intraoperative findings, and postoperative complications. It is important to understand that surgery does not come with any guarantee of a successful outcome as complications and adverse events are always possible. The patient was given a handout in office today discussing the surgical procedure and risks associated with the intervention, both of which were discussed with the patient. These risks include but are not limited to the following: * Experiencing same, different or even worse symptoms in back, neck, arms, or legs compared to before surgery. * Requiring further surgery or other forms of treatment presently or at some time in the future at same or other levels of the intended spine surgery. * On an extreme but fortunately relatively rare basis severe complication such as blindness, stroke, heart attack, temporary and/or permanent nerve injury, paralysis, coma, or may occur, sometimes without known explanation. * Surgical complications may include but are not limited to risk of infection, fluid accumulation in the surgical dissection site, including a seroma or hematoma, that requires additional surgery, wound drainage, bleeding, new numbness or weakness, vision changes/loss, spinal fluid leakage, non-healing and/or infected incision, headaches, difficulty or inability to swallow, hoarseness, hemopneumothorax, pneumothorax, impotence, retrograde ejaculation, vaginal dryness; injury to nerves, spinal cord, blood vessels, lymphatics or other vital organs (i.e., bowel injury, injury to the great vessels); heterotopic bone formation; complications related to the hardware such as screws, rods, cages including misplaced hardware, device failure, instrumentation at the wrong spine level, hardware fracture/breakage, or hardware loosening; vertebral failure of the spinal column above or below the newly placed hardware; retained surgical instrumentations or devices and the need for further surgery. * Medical risks of the planned spine surgery include but are not limited to generalized Infections to the whole body or local areas outside of the surgical site (sepsis), heart attack, bleeding, anaphylaxis, meningitis, seizu re, epilepsy, hearing loss, burn salazar, laceration of the head or other areas of the body, bruising, hypersensitivity of the skin, bladder over distension; allergic reaction; shoulder injury related to positioning; fat, blood and air clots to other areas of the body like heart, lungs, brain; failure of internal organs such as lungs, kidneys, liver and excessive bleeding. If blood transfusions are necessary, note that transfusions may cause intolerance reactions such as anaphylaxis or other complex reactions. * Despite best efforts, the results of spine surgery might not heal in terms of bone, soft tissues such as skin, fascia, ligaments, and joints. Additionally, in order to achieve best possible results, spine surgery may be carried out beyond the initially planned levels and involve decompression, fusion including insertion of hardware at levels other than the original intended area of surgical interest change some portions of the procedure in order to ensure the best possible outcomes. * With spine surgery and spinal fusion, there are different off label uses of instrumentation (devices, implants and hardware) as well as biological substances (bone morphogenic proteins, demineralized bone matrix) as well as using extra bone from allograft sources (i.e. cadaver bone) or autograft (iliac crest bone, ribs, or the spine itself). The patient has been given information about these practices and their inherent risks and benefits. The patient has had a chance to review all the listed information, has been given print outs detailing this information, and has had all his/her questions answered to their satisfaction. It was my pleasure to have seen and examined Nafisa. In our visit today we have had a chance to go over my understanding of our patient's current condition, the natural course history without intervention and various interventional options. Questions were invited and answered, and the patient wishes to proceed as outlined above. I have seen and examined the patient for 25 minutes and we have spent more than 50% of the time in repeat and detailed counseling about the patient's condition, its natural course history with out and as much as can be predicted with surgery and re-review of various surgical treatment options. In conclusion, Nafisa Romero and her requested we proceed with the above suggested surgery and are willing to accept risks and limitations of the suggested surgery as nature of the disease process and our best attempts at treatment for the condition. Thank you again for allowing us to be part of your patient's care. Please don't hesitate to contact me if you have any further questions. Signed and authenticated by: Ryan Abernathy [facility] [address] [facility], [address] [address]
[2021-06-06 12:35] LABS: Basophils # (A) 0.1 k/uL (0-0.2); Basophils % (A) 1 %; Eosinophils # (A) 0.3 k/uL (0-0.7); Eosinophils % (A) 4 %; HCT 42.8 % (34.0-46.0); Lymphocytes # (A) 1.6 k/uL (1.0-4.8); Lymphocytes % (A) 23 %; MCH 32.4 pg (25.0-35.0); MCHC 32.8 g/dL (31.0-37.0); MCV 98.9 fL (80.0-100.0); Mean Platelet Volume 7.1; Monocytes # (A) 0.4 k/uL (0-1.0); Monocytes % (A) 6 %; Neutrophils # (A) 4.3 k/uL (1.3-7.7); Neutrophils % (A) 64 %; Platelet Count 308 k/uL (150-450); RBC 4.33 m/uL (3.80-5.40); RDW 12.4 % (11.5-15.5); WBC 6.8 k/uL (3.8-10.6)
[2021-06-06 12:38] LABS: INR 0.9 (<1.2); Prothrombin Time 10.1 sec (9.0-12.0)
[2021-06-06 12:58] LABS: Calcium 9.2 mg/dL (8.4-10.2); Potassium 4.2 mmol/L (3.5-5.1)
[2021-06-06] MEDS: LACTATED RINGERS 1,000 ML IV SCH (13:36)
[2021-06-06] MEDS: HYDROmorphone 0.5 MG/0.5 ML SYRINGE IVP PRN ×3 (15:30→16:01)
[2021-06-06] MEDS: HYDROcodone/APAP 5-325MG 1 EACH TAB PO PRN ×2 (17:48→22:26)
[2021-06-06] MEDS: CYCLOBENZAPRINE 5 MG TAB PO SCH ×2 (17:53→19:58)
[2021-06-06] MEDS: SODIUM CHLORIDE 0.9% 1,000 ML IV SCH (17:57)
[~2021-06-06 19:09] MED LIST changes: -ACETAMINOPHEN TAB 500 MG TAB PO PRN; +ALPRAZolam 0.25 MG TAB PO PRN; +DEXAMETHASONE SOD PHOSPHATE 4 MG/ML 1 ML VIAL IV ONE; -GABAPENTIN 300 MG CAP PO PRN; -HYDROmorphone 0.5 MG/0.5 ML SYRINGE IVP PRN; +IBUPROFEN 800 MG TAB PO PRN; +LACTATED RINGERS 1,000 ML IV ONE; -LACTATED RINGERS 1,000 ML IV SCH; +LIDOCAINE 1% INJ 10MG/ML (20 ML MDV) ONE; +MIDAZOLAM 2 MG/2 ML VIAL ONE; +ONDANSETRON 4 MG/2 ML VIAL IVP ONE; -ONDANSETRON 4 MG/2 ML VIAL IVP PRN; +PROPOFOL 10 MG/ML 20 ML VIAL IV ONE; +SCOPOLAMINE 1 MG/72 HR PATCH TRANSDERM ONE; -TRANEXAMIC ACID IN NACL,ISO-OS 1,000 MG in SALINE 1 100ML.BAG IVPB PRN; +VANCOMYCIN 1,500 MG in SODIUM CHLORIDE 0.9% 250 ML IVPB ONE; +VANCOMYCIN IV PER PHARMACY 1 EACH MISC MISCELLANE PRN; +fentaNYL (PF) 50 MCG/ML 2 ML AMP IVP ONE; +fentaNYL (PF) 50 MCG/ML 2 ML AMP ONE
[2021-06-06] MEDS: GABAPENTIN 300 MG CAP PO SCH (19:58)
[2021-06-06] MEDS ORDERED: MIRTAZAPINE 15 MG TAB PO SCH (21:00)
[2021-06-06] MEDS ORDERED: NON FORMULARY DRUG (Progesterone, Micronized [Progesterone] 200 MG Capsule) PO SCH (21:00)
[2021-06-07] MEDS ORDERED: VANCOMYCIN 1,750 MG in SODIUM CHLORIDE 0.9% 500 ML 500 ML IVPB SCH ×2
[2021-06-07] MEDS: LACTATED RINGERS 1,000 ML IV SCH (06:47)
[2021-06-07] MEDS: HYDROcodone/APAP 5-325MG 1 EACH TAB PO PRN (07:10)
[2021-06-07] MEDS: SODIUM CHLORIDE 0.9% 1,000 ML IV SCH (07:17)
[2021-06-07] MEDS ORDERED: PANTOPRAZOLE 40 MG TABLET PO SCH (07:30)
[2021-06-07 07:42] VITALS: BP 158/97; PULSE 94; RESP 18; TEMP 98.3
--- NOTE | 2021-06-07 08:19 | P.DS ---
Providers Date of admission: 06/06/21 09:04 Expected date of discharge: 06/07/21 Attending physician: Ryan Quinones DO Primary care physician: Farhat Menjivar Hospital Course: Date of admission: 06/06/2021 Date of discharge: 06/07/2021 Admission diagnosis: Wound dehiscence 4 weeks s/p C5-6 total disc replacement Discharge diagnosis: Same Attending physician: Dr. Quinones Surgical procedures: Wound revision irrigation debridement and primary closure 4 weeks s/p C5-6 total disc replacement Brief history: Patient is a 50-year-old female with a history of wound dehiscence. At this point patient has failed conservative treatment measures and has opted to proceed with a elective wound revision, irrigation and debridement and primary closure. Hospital course: Details of patient's surgery can be found in operative report. Patient tolerated the procedure well and was subsequently transported to orthopedic floor. Patient's orthopeidc and medical care was provided daily. Patient had daily laboratory tests performed for evaluation of overall blood counts. Patient had daily physical therapy to include strengthening range of motion as well as education with walker ambulation. Patient was noted to have a relatively uneventful postoperative course. Patient reported satisfactory pain control with oral pain medications by postoperative day 1. Patient showed satisfactory progress with physical therapy. Patient moved steadily through the program and had no difficulty meeting the goals by postoperative day 1. Given patient's otherwise satisfactory course and having met physical therapy goals, plan is to discharge patient home on postoperative day 1. Discharge condition/disposition: Patient will be discharged home in stable condition. Discharge medications: Instructions are given on resumption of patient's normal daily medications per primary care recommendation, in addition patient will be prescribed [place] 5 mg/325 mg; Duricef. Spine Discharge and Recovery Instructions Date of Surgery: 06/06/2021 Diagnosis: Wound dehiscence 4 weeks status post C5-6 total disc replacement Procedure: Wound revision irrigation debridement and primary closure 4 status post C5-6 total disc replacement Medications: See medication list All medication refills should be obtained through your primary care doctor or your clinic spine surgeon. Please discuss prescription refills at your follow up appointment. Do not call the hospital for medication refills. Dressing: Leave your dressing in place for a total of 5 days post operatively. Then you may remove your dressing and leave open to air. Keep the area clean and if not able to keep area clean, then cover with sterile gauze and tape. Showering: You may shower 3 days after your procedure allowing soap and water to run over incision. Do not scrub. Do not soak. Blot dry. Follow up: Please confirm a follow up appointment with your surgeon 3 weeks post operatively. Please make an appointment to follow up with your PCP in 1-2 weeks after surgery for evaluation 3 phase, 3-week plan POST OP WEEKS 1-3 1. Lifting/carrying/pushing/pulling limited to less than 5 pounds. 2. Do not sit for longer than 15 minutes at one time. Get up and walk around. Prolonged sitting is NOT advised. If you lay down, see if you can tolerate laying down on you front (belly side) 3. Walk for periods of 15 minutes = 1 mile but no longer; do it multiple times times each day. 4. Ice your low back after activity. POST OP WEEKS 3-6 1. Lifting limited to less than 20 pounds. 2. Do not sit for longer than 30 minutes at a time. Frequently change positions. Use a sit-to stand workstation or take frequent breaks from sitting if you have returned to work. 3. Walk for 30 minutes each day. If possible, do these three or more times a day POST OP WEEKS 6+ At your 6-week appointment we will give you a physical therapy referral to focus on a core stabilization and strengthening program. You should also work on leg & buttock strengthening, hamstring & quadriceps stretching, and continue a low impact aerobic activity program such as swimming, walking, or riding a stationary bicycle. During the initial 6 weeks after your surgery, you are at the highest risk of re-injuring your spine. You should generally avoid BLTs (bending, lifting and twisting combination motions) and follow the above guidelines to reduce the chance of reinjury. You can anticipate post op appointments in our office at approximately 3 weeks and 6 weeks after your surgery. INCISION CARE: If your incision is not draining you do NOT need to cover it with a dressing. Keep your incision clean, dry and intact. In most cases, we apply skin glue, ja or sutures to the incision at the time of surgery. This will be like a crust or have the appearance of a scab and will fall off in time on its own. The stitches or ja need to be removed at 3 weeks post op appointment. You may begin to shower 3 days after surgery (this allows the glue to ha well). However, please avoid scrubbing the incision site or peeling off any of the skin glue. This will ensure optimal healing of your incision. Also, during this time avoid soaking the incision area in water - this includes swimming pools, hot tubs or baths. No ointments, lotions or oils on the incision until your surgeon allows. Leave ja, sutures or glue in place. Neurological dysfunction that comes on suddenly can also be a sign of a stroke. Below some common symptoms of a stroke are listed: B - balance difficulty such as sudden onset walking or leaning to one side - NEW E - eye problem such as sudden double vision or trouble seeing on one side - NEW F - Facial weakness or numbness on one side - NEW A - Arm or leg weakness or numbness on one side - NEW S - Slurred speech or difficulty with word finding - NEW T - Time is BRAIN! Call 911 as soon as you recognize these symptoms Diet: Consume a regular diet rich in vegetables and lean protein such as chicken or fish. You should consume in a ratio of approximately 20% fats|40% carbohydrates|40%protein. Vegetables, sweet potatoes, brown rice or quinoa are examples of good carbohydrates. Chips, white bread, cookies and sweets/sugar are examples of bad carbohydrates. Limit your bad carbs, go wild with good carbs. "Life's Simple 7" Guidelines as per [place] [employer] These will help you reclaim your life after surgery and clay dry press helper in your recovery, keeping in mind your restrictions. (1) Get Active. Physical activity can help people lose weight, control high blood pressure and cholesterol, feel emotionally better, and sleep better. (2) Control Cholesterol. Avoid a diet high in saturated fat, trans fat, & chol esterol. Limit whole milk & cream, ice cream, butter, egg yolks, processed meats (like sausage and hot dogs), and fatty meats. Choose healthy foods that are low in saturated fat, trans fat and cholesterol which include: Fruits and vegetables, fiber rich grain products (like whole grain pasta and brown rice), lean meat such as chicken, fish, nuts, seeds, and legumes. (3) Eat Better. Eat small portions. Shop at the grocery with a list and do not stray from it. Tips for a healthy diet include: Limit sodium intake to less than 1500mg daily, avoid prepackaged, processed, and fast foods, choose a diet rich in fruits, vegetables, and whole grain, high fiber foods, and limit saturated & cholesterol in your diet. (4) Manage Blood Pressure. If you have high blood pressure, you should have a cuff at home so that you can check your blood pressure regularly. Be sure you have a good cuff. An arm one is generally better than a wrist one. Bring the cuff to a doctor's appointment to validate that the measurements that your cuff are taking are accurate. Take your blood pressure twice daily when you are sitting down and relaxing. Record the numbers in a log and bring this log with you to your doctors' appointments. (5) Lose Weight if your BMI is above 25. A healthy BMI is between 19-25. To calculate Your BMI, you may use a Standard BMI Calculator on the NIH BMI websi te: <www.nhlbi.nih.gov/guidelines/obesity/BMI/bmicalc.htm>. Weigh oneself daily. If you are overweight, set a goal to lose weight. A pound a week loss if needed is a good target. (6) Reduce Blood Sugar. Limit foods and liquids with "added sugars." (Added sugars include sucrose, fructose, glucose, maltose, dextrose, high fructose corn syrup, corn syrup, concentrated fruit juice and honey). (7) Stop Smoking. If you smoke, quitting smoking is one of the best things that you can do for your health. Smoking increases your risk of heart attack, stroke, and peripheral vascular disease, which is a build-up of plaque in your arteries. Please discard all the cigarettes and lighters in your house. Have a plan for what you will do when you have the urge to smoke. Direct and second-hand smoke shortens your life as well as the lives of your family, friends and others around you. For your health and the health of those around you, please consider quitting! Proper Bending Body Mechanics: Maintain a wide stance with one foot slightly in front of the other. Keep your back straight. Bend utilizing the strength in your hips and knees. Do not bend at the waist. Maintain the lifted object at your waist-level close to your body. Avoid lifting weight that causes immediately pain or pain anywhere in the body afterwards. Smoking/Nicotine If there was ever one thing that you could do to increase your overall health, decrease your risk of cardiovascular problems by about 39% the second you make the choice, it is to STOP SMOKING. Your body's most instant gratification is the second you stop smoking. We have all heard the studies, read the articles but it is true, smoking is extremely bad for your overall health, and moreover it is detrimental to your bone health. Nicotine, IN ANY FORM, kills bone cells, prevents your body from healing fractures, and significantly prolongs healing after surgery. In spine surgery specifically, it increases your risk of not healing your bones to create a fusion and increases your risk of having a revision surgery due to this up to 60%. I know it is hard. I know it feels impossible. But there are ways. Take control of your life. We are here to help you through it. And when you are ready, ask us and we can direct you to help if you desire. Use the START Plan to Quit Smoking (please visit the [employer] website listed below for more information): S = Set a quit date. Choose a date within the next 2 weeks, so you have enough time to prepare without losing your motivation to quit. If you mainly smoke at work, quit on the weekend, so you have a few days to adjust to the change. T = Tell family, friends, and co-workers that you plan to quit. Let your friends and family in on your plan to quit smoking and tell them you need their support and encouragement to stop. Look for a quit marina who wants to stop smoking as well. You can help each other get through the rough times. A = Anticipate and plan for the challenges you'll face while quitting. Most people who begin smoking again do so within the first 3 months. You can help yourself make it through by preparing ahead for common challenges, such as nicotine withdrawal and cigarette cravings. R = Remove cigarettes and other tobacco products from your home, car, and work. Throw away all your cigarettes (no emergency pack!), lighters, ashtrays, and matches. Wash your clothes and freshen up anything that smells like smoke. Shampoo your car, clean your drapes and carpet, and steam your furniture. T = Talk to your doctor about getting help to quit. Your doctor can prescribe medication to help with withdrawal and suggest other alternatives. If you can't see a doctor, you can get many products over the counter at your local pharmacy or grocery store, including the nicotine patch, nicotine lozenges, and nicotine gum. Resources for Quitting Smoking: <https://www.[place].gov/documents/[facility]/Quit_Tobacco_Resources_for_patients_313 480_7.pdf> Supplementation: Take recommended dosages of Vitamin D and Calcium to help fortify your bones and help them to heal. See your health maintenance packet for dosages and recommended levels. DVT/VTE prophylaxis: You will be given compression stockings from the hospital. Wear these daily for the first two weeks after surgery. You may take them off at night. You may be prescribed a medication to help thin your blood. Take this as directed. If you are not prescribed this medication, early and frequent ambulation has been shown to be the best prophylaxis to deep vein thrombosis and sequelae related to this event. Assessment: 1. 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 Right Upper extremity numbness 3. Right Upper extremity radiculopathy 4. Right lower extremity weakness 5. Distal tip tongue bite injury Procedures: Wound revision irrigation debridement and primary closure 4 weeks s/p C5-6 total disc replacement Patient Condition at Discharge: Good Plan - Discharge Summary Discharge Rx Participant: No New Discharge Prescriptions: New HYDROcodone/APAP 5-325MG [[place] 5-325] 1 tab PO Q6HR PRN #24 tab PRN Reason: Pain cefaDROXiL [Duricef] 500 mg PO Q12HR 5 Days #10 cap No Action Omeprazole [PriLOSEC] 20 mg PO QAM DULoxetine HCL [Cymbalta] 90 mg PO QAM Montelukast Sodium [Singulair] 10 mg PO DAILY Losartan [Cozaar] 50 mg PO QAM Ibuprofen [Motrin] 800 mg PO Q8H PRN PRN Reason: Pain ALPRAZolam [Xanax] 0.25 mg PO Q8HR PRN PRN Reason: Anxiety HYDROcodone/APAP 10-325MG [[place] 10-325] 1 tab PO Q8H PRN PRN Reason: Pain Mirtazapine [Remeron] 30 mg PO HS Cyclobenzaprine [Flexeril] 5 mg PO TID #90 tablet Gabapentin 300 mg PO BID #90 cap Meloxicam 15 mg PO DAILY Progesterone, Micronized [Progesterone] 200 mg PO HS cefaDROXiL [Duricef] 500 mg PO Q12HR 3 Days #6 cap HYDROcodone/APAP 5-325MG [[place] 5-325] 1 tab PO Q4HR PRN #56 tab PRN Reason: Pain Indomethacin 25 mg PO BID #30 capsule Discharge Medication List DULoxetine HCL [Cymbalta] 90 mg PO QAM 03/02/14 [History] Omeprazole [PriLOSEC] 20 mg PO QAM 03/02/14 [History] Losartan [Cozaar] 50 mg PO QAM 03/25/15 [History] Montelukast Sodium [Singulair] 10 mg PO DAILY 03/25/15 [History] ALPRAZolam [Xanax] 0.25 mg PO Q8HR PRN 09/30/16 [History] Ibuprofen [Motrin] 800 mg PO Q8H PRN 09/30/16 [History] HYDROcodone/APAP 10-325MG [[place] 10-325] 1 tab PO Q8H PRN 02/10/21 [History] Meloxicam 15 mg PO DAILY 02/10/21 [History] Mirtazapine [Remeron] 30 mg PO HS 02/10/21 [History] Progesterone, Micronized [Progesterone] 200 mg PO HS 05/06/21 [History] Cyclobenzaprine [Flexeril] 5 mg PO TID #90 tablet 05/09/21 [Rx] Gabapentin 300 mg PO BID #90 cap 05/09/21 [Rx] HYDROcodone/APAP 5-325MG [[place] 5-325] 1 tab PO Q4HR PRN #56 tab 05/09/21 [Rx] Indomethacin 25 mg PO BID #30 capsule 05/09/21 [Rx] cefaDROXiL [Duricef] 500 mg PO Q12HR 3 Days #6 cap 05/09/21 [Rx] HYDROcodone/APAP 5-325MG [[place] 5-325] 1 tab PO Q6HR PRN #24 tab 06/07/21 [Rx] cefaDROXiL [Duricef] 500 mg PO Q12HR 5 Days #10 cap 06/07/21 [Rx] Follow up Appointment(s)/Referral(s): [place],, DO [Doctor of Osteopathic Medicine] - 2 Weeks Activity/Diet/Wound Care/Special Instructions: Spine Discharge and Recovery Instructions Date of Surgery: 06/06/2021 Diagnosis: Wound dehiscence 4 weeks status post C5-6 total disc replacement Procedure: Wound revision irrigation debridement and primary closure 4 status post C5-6 total disc replacement Medications: See medication list All medication refills should be obtained through your primary care doctor or your clinic spine surgeon. Please discuss prescription refills at your follow up appointment. Do not call the hospital for medication refills. Dressing: Leave your dressing in place for a total of 5 days post operatively. Then you may remove your dressing and leave open to air. Keep the area clean and if not able to keep area clean, then cover with sterile gauze and tape. Showering: You may shower 3 days after your procedure allowing soap and water to run over incision. Do not scrub. Do not soak. Blot dry. Follow up: Please confirm a follow up appointment with your surgeon 3 weeks post operatively. Please make an appointment to follow up with your PCP in 1-2 weeks after surgery for evaluation 3 phase, 3-week plan POST OP WEEKS 1-3 1. Lifting/carrying/pushing/pulling limited to less than 5 pounds. 2. Do not sit for longer than 15 minutes at one time. Get up and walk around. Prolonged sitting is NOT advised. If you lay down, see if you can tolerate laying down on you front (belly side) 3. Walk for periods of 15 minutes = 1 mile but no longer; do it multiple times times each day. 4. Ice your low back after activity. POST OP WEEKS 3-6 1. Lifting limited to less than 20 pounds. 2. Do not sit for longer than 30 minutes at a time. Frequently change positions. Use a sit-to stand workstation or take frequent breaks from sitting if you have returned to work. 3. Walk for 30 minutes each day. If possible, do these three or more times a day POST OP WEEKS 6+ At your 6-week appointment we will give you a physical therapy referral to focus on a core stabilization and strengthening program. You should also work on leg & buttock strengthening, hamstring & quadriceps stretching, and continue a low impact aerobic activity program such as swimming, walking, or riding a stationary bicycle. During the initial 6 weeks after your surgery, you are at the highest risk of re-injuring your spine. You should generally avoid BLTs (bending, lifting and twisting combination motions) and follow the above guidelines to reduce the chance of reinjury. You can anticipate post op appointments in our office at approximately 3 weeks and 6 weeks after your surgery. INCISION CARE: If your incision is not draining you do NOT need to cover it with a dressing. Keep your incision clean, dry and intact. In most cases, we apply skin glue, ja or sutures to the incision at the time of surgery. This will be like a crust or have the appearance of a scab and will fall off in time on its own. The stitches or aj need to be removed at 3 weeks post op appointment. You may begin to shower 3 days after surgery (this allows the glue to ha well). However, please avoid scrubbing the incision site or peeling off any of the skin glue. This will ensure optimal healing of your incision. Also, during this time avoid soaking the incision area in water - this includes swimming pools, hot tubs or baths. No ointments, lotions or oils on the incision until your surgeon allows. Leave ja, sutures or glue in place. Neurological dysfunction that comes on suddenly can also be a sign of a stroke. Below some common symptoms of a stroke are listed: B - balance difficulty such as sudden onset walking or leaning to one side - NE W E - eye problem such as sudden double vision or trouble seeing on one side - NEW F - Facial weakness or numbness on one side - NEW A - Arm or leg weakness or numbness on one side - NEW S - Slurred speech or difficulty with word finding - NEW T - Time is BRAIN! Call 911 as soon as you recognize these symptoms Diet: Consume a regular diet rich in vegetables and lean protein such as chicken or fish. You should consume in a ratio of approximately 20% fats|40% carbohydrates|40%protein. Vegetables, sweet potatoes, brown rice or quinoa are examples of good carbohydrates. Chips, white bread, cookies and sweets/sugar are examples of bad carbohydrates. Limit your bad carbs, go wild with good carbs. "Life's Simple 7" Guidelines as per [place] [employer] These will help you reclaim your life after surgery and clay dry press helper in your recovery, keeping in mind your restrictions. (1) Get Active. Physical activity can help people lose weight, control high blood pressure and cholesterol, feel emotionally better, and sleep better. (2) Control Cholesterol. Avoid a diet high in saturated fat, trans fat, & cholesterol. Limit whole milk & cream, ice cream, butter, egg yolks, processed meats (like sausage and hot dogs), and fatty meats. Choose healthy foods that are low in saturated fat, trans fat and cholesterol which include: Fruits and vegetables, fiber rich grain products (like whole grain pasta and brown rice), lean meat such as chicken, fish, nuts, seeds, and legumes. (3) Eat Better. Eat small portions. Shop at the grocery with a list and do not stray from it. Tips for a healthy diet include: Limit sodium intake to less than 1500mg daily, avoid prepackaged, processed, and fast foods, choose a diet rich in fruits, vegetables, and whole grain, high fiber foods, and limit saturated & cholesterol in your diet. (4) Manage Blood Pressure. If you have high blood pressure, you should have a cuff at home so that you can check your blood pressure regularly. Be sure you have a good cuff. An arm one is generally better than a wrist one. Bring the cuff to a doctor's appointment to validate that the measurements that your cuff are taking are accurate. Take your blood pressure twice daily when you are sitting down and relaxing. Record the numbers in a log and bring this log with you to your doctors' appointments. (5) Lose Weight if your BMI is above 25. A healthy BMI is between 19-25. To calculate Your BMI, you may use a Standard BMI Calculator on the NIH BMI website: <www.nhlbi.nih.gov/guidelines/obesity/BMI/bmicalc.htm>. Weigh oneself daily. If you are overweight, set a goal to lose weight. A pound a week loss if needed is a good target. (6) Reduce Blood Sugar. Limit foods and liquids with "added sugars." (Added sugars include sucrose, fructose, glucose, maltose, dextrose, high fructose corn syrup, corn syrup, concentrated fruit juice and honey). (7) Stop Smoking. If you smoke, quitting smoking is one of the best things that you can do for your health. Smoking increases your risk of heart attack, stroke, and peripheral vascular disease, which is a build-up of plaque in your arteries. Please discard all the cigarettes and lighters in your house. Have a plan for what you will do when you have the urge to smoke. Direct and second- hand smoke shortens your life as well as the lives of your family, friends and others around you. For your health and the health of those around you, please consider quitting! Proper Bending Body Mechanics: Maintain a wide stance with one foot slightly in front of the other. Keep your back straight. Bend utilizing the strength in your hips and knees. Do not bend at the waist. Maintain the lifted object at your waist-level close to your body. Avoid lifting weight that causes immediately pain or pain anywhere in the body afterwards. Smoking/Nicotine If there was ever one thing that you could do to increase your overall health, decrease your risk of cardiovascular problems by about 39% the second you make the choice, it is to STOP SMOKING. Your body's most instant gratification is the second you stop smoking. We have all heard the studies, read the articles but it is true, smoking is extremely bad for your overall health, and moreover it is detrimental to your bone health. Nicotine, IN ANY FORM, kills bone cells, prevents your body from healing fractures, and significantly prolongs healing after surgery. In spine surgery specifically, it increases your risk of not healing your bones to create a fusion and increases your risk of having a revision surgery due to this up to 60%. I know it is hard. I know it feels impossible. But there are ways. Take control of your life. We are here to help you through it. And when you are ready, ask us and we can direct you to help if you desire. Use the START Plan to Quit Smoking (please visit the Helpguide.org website listed below for more information): S = Set a quit date. Choose a date within the next 2 weeks, so you have enough time to prepare without losing your motivation to quit. If you mainly smoke at work, quit on the weekend, so you have a few days to adjust to the change. T = Tell family, friends, and co-workers that you plan to quit. Let your friends and family in on your plan to quit smoking and tell them you need their support and encouragement to stop. Look for a quit marina who wants to stop smoking as well. You can help each other get through the rough times. A = Anticipate and plan for the challenges you'll face while quitting. Most people who begin smoking again do so within the first 3 months. You can help yourself make it through by preparing ahead for common challenges, such as nicotine withdrawal and cigarette cravings. R = Remove cigarettes and other tobacco products from your home, car, and work. Throw away all your cigarettes (no emergency pack!), lighters, ashtrays, and matches. Wash your clothes and freshen up anything that smells like smoke. Shampoo your car, clean your drapes and carpet, and steam your furniture. T = Talk to your doctor about getting help to quit. Your doctor can prescribe medication to help with withdrawal and suggest other alternatives. If you can't see a doctor, you can get many products over the counter at your local pharmacy or grocery store, including the nicotine patch, nicotine lozenges, and nicotine gum. Resources for Quitting Smoking: <https://www.[facility].gov/documents/[facility]/Quit_Tobacco_Resources_for_patients_313480_7.pdf> Supplementation: Take recommended dosages of Vitamin D and Calcium to help fortify your bones and help them to heal. See your health maintenance packet for dosages and recommended levels. DVT/VTE prophylaxis: You will be given compression stockings from the hospital. Wear these daily for the first two weeks after surgery. You may take them off at night. You may be prescribed a medication to help thin your blood. Take this as directed. If you are not prescribed this medication, early and frequent ambulation has been shown to be the best prophylaxis to deep vein thrombosis and sequelae related to this event. Discharge Disposition: HOME SELF-CARE
--- NOTE | 2021-06-07 08:22 | P.OP ---
Date of Procedure: 06/06/21 Preoperative Diagnosis: 1. Wound dehiscence anterior cervical Postoperative Diagnosis: 1. Wound dehiscence anterior neck 2 cm x 1 cm x .5 cm due to vicryl sensitivity Procedure(s) Performed: 1. Irrigation and excisional debridment anterior neck wound skin, soft tissue and muscle 2cm x 1 cm x .5 cm -Knife used to freshen skin edges -Curette used to debride non viable soft tissue and muscle 2. Complex closure 2cm x 1 cm x .5cm layerd, 3 layers Implants: none Anesthesia: MAC Surgeon: Ryan Quinones Immunology Teacher #1: Karin Kat (Was present and assisted with positionoing, debridement, closure and dressing. ) Estimated Blood Loss (ml): 7 IV fluids (ml): 200 Urine output (ml): 0 Pathology: other (2 anterior neck superficial swabs) Condition: stable Disposition: PACU Indications for Procedure: 50 yo female with anterior neck wound dehiscence after TDR presented to office with wound opening on the lateral 2cm aspect. No purulence. No drainage. She was going to PCP who was packing the wound. She had been on ABX from follow up and due to the continued non healing we discussed fixing surgically and she agreed. Risks and benefits discussed as in risk review. She was willing to proceed. Description of Procedure: The patient was seen and examined in the preoperative area. All preoperative protocols were followed. Informed consent was obtained risks and benefits of the procedure were discussed at length. Risks including bleeding infection damage to the surrounding tissue and risk of reoperation were discussed with the patient. Risk of anesthesia up to and including was a discussed with the patient. These are outlined in the risk review. They were willing to accept these risks and all of the risks of surgery. The patient was given a weight- based dose of antibiotics in the form of vancomycin weight-based dose. The patient was seen and evaluated by the anesthesia team who deemed them fit for surgery. The site was marked, the patient was willing to proceed with the procedure. The patient was transferred to the operative suite by the Department of anesthesia. They were then drifted off to sleep by the department anesthesia and LMA was performed. The patient tolerated this well. . Once confirmation of lines and ventilation the patient was transferred to a supine flat top standard table. All bony prominences including wrists, elbows, axilla, chest, hips, and thighs, and feet were padded very well. Special attention was paid to the genitalia and these were padded accordingly. SCDs were placed on bilateral lower extremities and were connected. Arms were well padded and placed tucked at her side thumbs up well-padded. Once in position, again we confirmed good ventilation capabilities and that lines were running appropriately. The patient's anterior cervical spine was then exposed. 1010s were placed outlining the incision site. Standard alcohol was used to clean the incision site and a llowed to dry. C-arm was used to biomark the patient and confirm level for incision which was marked with a skin marker. Operative briefing was performed with all teams and everyone in agreement to proceed. The patient was then prepped and draped in a normal sterile fashion. Timeout was then performed and all parties were in agreement with the procedure to be performed. Wound was inspected 2 x 1 x 0.5 cm aspect of the lateral aspect of her anterior neck wound had dehisced there is no purulence or drainage appears that she has a Vicryl reaction in this area. The deep sutures were removed as well as a superficial sutures. There is almost granulomatous-like material that was forming around these. There is no purulence it did not track deep the platysma was healing and showed no signs of infection. 2 swabs were taken of the area and sent for culture. We then proceeded with irrigation irrigating the wound thoroughly with a antibiotic irrigation solution. Curet was used to scrape the wound bed and edges to freshen them and to remove any other granulomatous material or other materials as well as the muscle over the platysma. 15 blade was used to freshen the edges of the skin. We thoroughly irrigated once again. We then used 4-0 PDS suture in the deep layer followed by 4-0 PDS in the superficial subcu tissue followed by 4-0 nylon in a simple fashion and the skin. The wound edges approximated very well and there were no complications. Wound was then cleaned and dressed sterilely with an operative foam dressing. The patient was transferred back to their hospital bed atraumatically. Patient was then awakened and extubated by the department of anesthesia having tolerated the procedure very well with no complications. They were transferred to the postoperative care unit in stable condition.
--- NOTE | 2021-06-07 08:28 | P.PN ---
Progress Note - Text Progress Note Date: 06/07/21 Diagnosis: Wound dehiscence 4 weeks s/p C5-6 total disc replacement Subjective: Patient was seen at bedside this morning resting comfortably sitting semirecumbent with dressing on anterior cervical area. Patient says she is doing well this morning. Patient says she is looking forward to going home. Patient says she is having some minimal pain over incision. Patient does not have any other complaints at this time. Patient denies chest pain, fever, shortness breath, nausea, vomiting, change in vision, loss of bowel/bladder control. Objective: Optifoam dressing was removed from anterior cervical area. Incision is clean, dry, intact. Nylon sutures were well aligned and in good place. Negative for any fluctuance/purulence. Minimal erythema. Negative for any ecchymosis. Patient has minimal tenderness to palpation along the incision in the anterior cervical area. Radial pulses intact, 2+ bilaterally. Capillary refill under 3 seconds bilaterally and digits of upper extremities. Negative Homans bilaterally. Progressive Care Unit Registered Nurse strength 4+/5 bilaterally. Patient has good range of motion upper extremities bilaterally. Assessment: Wound dehiscence 4 weeks s/p C5-6 total disc replacement Postoperative day #1 status post Wound revision irrigation debridement and primary closure Plan: 1. Wound dehiscence 4 status post C5 to 6 total disc replacement - surgery performed yesterday, 06/06/2021wound revision irrigation debridement and primary closure. Patient stable at bedside this morning. Dressing on anterior cervical area was changed. Plan discharge home today. Follow up in office in 2 weeks 2. Appreciate medical management 3. Pain management - [place]; Tylenol; gabapentin; Flexeril 4. DVT prophylaxis/GI prophylaxis - mechanical/Protonix 5. PT/OT - weightbearing as tolerated 6. Discharge planning - discharge home today, 06/07/2021
[2021-06-07] MEDS: GABAPENTIN 300 MG CAP PO SCH (08:32)
[2021-06-07] MEDS: CYCLOBENZAPRINE 5 MG TAB PO SCH (08:33)
[2021-06-07] MEDS ORDERED: DULoxetine HCL 30 MG CAPSULE.DR PO SCH (09:00)
[2021-06-07] MEDS ORDERED: MONTELUKAST 10 MG TAB PO SCH (09:00)
[2021-06-07] MEDS ORDERED: LOSARTAN 50 MG TAB PO SCH (09:00)
[2021-06-08] MEDS ORDERED: VANCOMYCIN TROUGH DUE 1 EACH MISC MISCELLANE ONE (11:00)
== END 2021-06-07 09:51 | disposition home or self-care (01) ==
LOC: OR 19:09 → UNDODISIN 06-07 09:51 → OR 06-07 09:51
PROVIDERS: ATTEND Orthopaedic Surgery
DX: T81.31XA Disruption of external operation (surgical) wound, not elsewhere classified, initial encounter (principal); I10 Essential (primary) hypertension; N39.3 Stress incontinence (female) (male); K58.9 Irritable bowel syndrome, unspecified; F32.A Depression, unspecified; Z98.890 Other specified postprocedural states; Z87.442 Personal history of urinary calculi; F17.210 Nicotine dependence, cigarettes, uncomplicated; Z82.49 Family history of ischemic heart disease and other diseases of the circulatory system; Z90.710 Acquired absence of both cervix and uterus; Z84.1 Family history of disorders of kidney and ureter; Z79.1 Long term (current) use of non-steroidal anti-inflammatories (NSAID); Z79.899 Other long term (current) drug therapy; Z88.2 Allergy status to sulfonamides
CPT/HCPCS: 80048; 85025; 85610; 87070; 87205; 87075; 13160; J2250; J3370 ×2; J1100; J0690 ×2; J2405; J2001; J3010; J2704; J1170

== ENCOUNTER → 2022-06-05 | Outpatient (CLI) | payer BC, OTHER ==
--- NOTE | 2022-06-05 12:53 | MM ---
Reason for Exam: Screening (asymptomatic). Last mammogram was performed 1 year(s) and 1 month(s) ago. Patient History: Menarche at age 14. First Full-Term at age 41. Late child-bearing (after 31). Hysterectomy at age 41. Hormonal Contraceptives for 27 years from age 14 until age 41. 2004, Bilateral Reduction. Risk Values: Sarina 5 year model risk: 1.3%. NCI Lifetime model risk: 12.1%. Prior Study Comparison: 04/20/2018 Bilateral Screening Mammogram, [facility]. 03/28/2020 Bilateral Screening Mammogram, [facility]. 05/08/2021 Bilateral Screening Mammogram, [facility]. Tissue Density: There are scattered fibroglandular densities. Findings: Analyzed By CAD. There is no suspicious group of microcalcifications or new suspicious mass in either breast. Benign-appearing calcifications within both breasts. Overall Assessment: Benign, BI-RAD 2 Management: Screening Mammogram of both breasts in 1 year. A clinical breast exam by your physician is recommended on an annual basis and results should be correlated with mammographic findings. Electronically signed and approved by: Jean Garcia D.O.
== END | disposition home or self-care (01) ==
LOC: RADMAMWWP 10:15
PROVIDERS: ATTEND Obstetrics & Gynecology
DX: Z12.31 Encounter for screening mammogram for malignant neoplasm of breast (principal)
CPT/HCPCS: 77063; 77067

== ENCOUNTER → 2022-11-09 | Outpatient (CLI) | payer BC, OTHER ==
--- NOTE | 2022-11-09 08:55 | CT ---
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 FINDINGS: LUNG BASES: No evidence for nodule. No evidence for infiltrate. LIVER/GB: The gallbladder is unremarkable. No space-occupying hepatic lesion. PANCREAS: No pancreatic mass identified. No inflammatory process seen. SPLEEN: No evidence for splenomegaly. No intrasplenic lesions seen. ADRENALS: No adrenal nodules identified. No evidence for thickening. KIDNEYS: No evidence for renal mass. Bilateral nephrolithiasis approximately 8 calculi on the right m easuring up to 5 mm. On the left there are approximately 2 or 3 calculi seen measuring up to 3 mm. Th ere is no evidence for hydronephrosis or obstructing uropathy. BOWEL: Appendix has a normal appearance. No evidence of bowel obstruction. No inflammatory process. Lymph nodes: No evidence for adenopathy greater than 1 cm. Abdominal aorta: Atheromatous changes seen. No evidence for aneurysm. Genital organs: No significant abnormality. Other: No significant abnormality. IMPRESSION: NONOBSTRUCTING NEPHROLITHIASIS.
== END | disposition home or self-care (01) ==
LOC: RADCTMAIN 07:59
PROVIDERS: ATTEND Family Medicine
DX: N20.0 Calculus of kidney (principal); M54.50 Low back pain, unspecified; N80.9 Endometriosis, unspecified; Z87.442 Personal history of urinary calculi
CPT/HCPCS: 74176

== ENCOUNTER → 2023-02-10 | Outpatient (CLI) | payer BC, OTHER ==
[2023-02-10 14:56] LABS: Basophils # (A) 0.05 X 10*3/uL (0.00-0.10); Basophils % (A) 0.9 %; Eosinophils # (A) 0.15 X 10*3/uL (0.04-0.35); Eosinophils % (A) 2.7 %; HCT 42.9 % (37.2-46.3); HGB 14.3 g/dL (12.0-15.0); Lymphocytes # (A) 1.45 X 10*3/uL (0.90-5.00); Lymphocytes % (A) 26.6 %; MCH 32.7 pg (27.0-32.0); MCHC 33.3 g/dL (32.0-37.0); MCV 98.2 FL (80.0-97.0); Mean Platelet Volume 9.9 FL (9.5-12.2); Monocytes # (A) 0.54 X 10*3/uL (0.20-1.00); Monocytes % (A) 9.9 %; NRBC Per 100 WBC 0 X 10*3/uL (0.00-0.01); Neutrophils # (A) 3.26 X 10*3/uL (1.80-7.70); Neutrophils % (A) 59.7 %; Platelet Count 353 X 10*3/uL (140-440); RBC 4.37 X 10*6/uL (4.10-5.20); RDW 12.5 % (11.5-14.5); WBC 5.46 X 10*3/uL (4.50-10.00)
[2023-02-10 15:03] LABS: Blood Urea Nitrogen 7.8 mg/dL (9.0-27.0); Calcium 9.5 mg/dL (8.7-10.3); Carbon Dioxide 24.3 mmol/L (21.6-31.8); Chloride 103 mmol/L (96-109); Glucose 94 mg/dL (70-110); Potassium 4.4 mmol/L (3.5-5.5); Sodium 138 mmol/L (135-145)
== END | disposition home or self-care (01) ==
LOC: LABPAT 09:11
PROVIDERS: ATTEND Urology
DX: Z01.812 Encounter for preprocedural laboratory examination (principal); N20.0 Calculus of kidney
CPT/HCPCS: 80048; 85025

== ENCOUNTER 2023-02-18 10:27 | Day surgery (SDC) | payer BC, OTHER ==
[2023-02-11 12:38] VITALS: BMI 35.5
--- NOTE | 2023-02-18 09:02 | P.GSHP ---
History of Present Illness H&P Date: 02/18/23 Chief Complaint: Hematuria The patient is a 52-year-old white female with a history of urolithiasis. She reports mixed urinary incontinence. She reports occasional dysuria and hematuria. Computed tomography scan shows bilateral renal calculi, predominantly right sided. - Constitutional Constitutional: Denies chills, Denies fever - Genitourinary (Female) Genitourinary: Reports dysuria, Reports hematuria, Reports mixed incontinence Past Medical History Past Medical History: GERD/Reflux, Hypertension Additional Past Medical History / Comment(s): stress incontinence,IBS, migraines, kidney stones, CELIAC, History of Any Multi-Drug Resistant Organisms: None Reported Past Surgical History: Adenoidectomy, Bladder Surgery, Breast Surgery, Hysterectomy, Joint Replacement, Orthopedic Surgery, Tonsillectomy Additional Past Surgical History / Comment(s): D & C, rosalba breast reduction, rosalba carpal tunnel, laproscopy x 2 for endometriosis, C5-6 DISC REPLACED, LT KNEE PARTIAL REPLACEMENT, CYSTOCELE AND BLADDER SUSPENSION, HEMORRHOIDECTOMY, COLONOSCOPY, Past Anesthesia/Blood Transfusion Reactions: No Reported Reaction Smoking Status: Current some day smoker - Past Family History Father Family Medical History: Hypertension Additional Family Medical History / Comment(s): Kidney stones. Mother Family Medical History: Hypertension Additional Family Medical History / Comment(s): Kidney stones. Medications and Allergies Home Medications Medication Instructions Recorded Confirmed Type Losartan [Cozaar] 50 mg PO QAM 03/25/15 02/11/23 History Montelukast Sodium [Singulair] 10 mg PO DAILY 03/25/15 02/11/23 History Progesterone, Micronized 200 mg PO HS 05/06/21 02/11/23 History [Progesterone] HYDROcodone/APAP 5-325MG [Stephen 1 tab PO Q6HR PRN #24 tab 06/07/21 02/11/23 Rx 5-325] FLUoxetine HCL [Prozac] 40 mg PO HS 02/11/23 02/11/23 History Ibuprofen [Motrin Ib] 200 mg PO Q8H PRN 02/11/23 02/11/23 History Loratadine 10 mg PO DAILY 02/11/23 02/11/23 History Omeprazole 40 mg PO DAILY 02/11/23 02/11/23 History Phentermine HCl 37.5 mg PO AC-BRKFST 02/11/23 02/11/23 History Topiramate [Topamax] 25 mg PO BID 02/11/23 02/11/23 History clonazePAM [Klonopin] 0.75 mg PO HS 02/11/23 02/11/23 History Allergies Allergy/AdvReac Type Severity Reaction Status Date / Time sulfamethoxazole Allergy Rash/Hives Verified 02/11/23 12:14 [From Bactrim] trimethoprim [From Bactrim] Allergy Rash/Hives Verified 02/11/23 12:14 VICRYL SUTURES Allergy BODY Uncoded 02/11/23 12:14 REJECTED THEM AFTER CERVICAL DISC REPLACEMENT Surgical - Exam - General well developed, well nourished, no distress - Neck no masses, trachea midline - Respiratory normal respiratory effort - Abdomen Abdomen: soft, non tender, no guarding, no rigid, no rebound - Psychiatric oriented to time, oriented to person, oriented to place, speech is normal, memory intact Results - Imaging CT scan - abdomen: report reviewed, image reviewed Assessment and Plan (1) Calculus of kidney Status: Acute Code(s): N20.0 - CALCULUS OF KIDNEY SNOMED Code(s): 51045176 Plan: Review of the CT scan shows only a small lower pole renal calculus on the left. However, the right kidney contains approximately 8 calculi measuring up to 5 mm in size. She has elected to undergo cystoscopy, right retrograde pyelogram, right ureteroscopy with laser lithotripsy and possible stone basketing, right ur eteral stent insertion. The procedure has been reviewed in detail with the patient. She has been made aware of potential risks, which include anesthesia, bleeding, infection, ureteral injury, and inability to remove all right renal calculi.
--- NOTE | 2023-02-18 10:42 | XR ---
EXAMINATION TYPE: XR KUB DATE OF EXAM: 02/18/2023 Comparison: Correlation CT 11/09/2022 Clinical History: 52-year-old female N20.0 Right renal calculi Findings: Punctate phlebolith in the pelvis. Faint calcific densities projecting at the right mid abdomen measu ring up to 4 mm. Nonobstructive bowel gas pattern. Mild stool burden. Impression: Punctate right renal calculi measuring up to 4 mm. Pelvic phleboliths.
[2023-02-18] MEDS ORDERED: HYDROmorphone 0.5 MG/0.5 ML SYRINGE IVP PRN (10:51)
[2023-02-18] MEDS ORDERED: ONDANSETRON 4 MG/2 ML VIAL IVP ONE ×2 (10:51→11:18)
[2023-02-18] MEDS ORDERED: MIDAZOLAM 2 MG/2 ML VIAL IV PRN (10:51)
[2023-02-18] MEDS ORDERED: LACTATED RINGERS 1,000 ML IV SCH (10:51)
[2023-02-18] MEDS ORDERED: LIDOCAINE 1% (10MG/ML) FOR IV START INTRADERMA PRN (10:51)
[2023-02-18] MEDS ORDERED: DEXAMETHASONE SOD PHOSPHATE 4 MG/ML 1 ML VIAL IV ONE (10:51)
[2023-02-18] MEDS ORDERED: DEXAMETHASONE SOD PHOSPHATE 4 MG/ML 1 ML VIAL IVP ONE (11:18)
[2023-02-18] MEDS ORDERED: FAMOTIDINE 20 MG/2 ML VIAL IVP ONE (11:31)
[2023-02-18] MEDS ORDERED: MIDAZOLAM 2 MG/2 ML VIAL IVP ONE ×2 (11:31→11:44)
[2023-02-18] MEDS ORDERED: MIDAZOLAM 2 MG/2 ML VIAL ONE (14:09)
[2023-02-18] MEDS ORDERED: SUCCINYLCHOLINE CHLORIDE 200 MG/10 ML VIAL IV ONE (14:09)
[2023-02-18] MEDS ORDERED: PROPOFOL 10 MG/ML 20 ML VIAL IV ONE (14:09)
[2023-02-18] MEDS ORDERED: LIDOCAINE 1% INJ 10MG/ML (20 ML MDV) ONE (14:09)
[2023-02-18] MEDS ORDERED: KETOROLAC 15 MG/ML 1 ML VIAL ONE (14:09)
[2023-02-18] MEDS ORDERED: fentaNYL (PF) 50 MCG/ML 2 ML AMP ONE (14:09)
--- NOTE | 2023-02-18 15:33 | P.OP ---
Date of Procedure: 02/18/23 Preoperative Diagnosis: Right renal calculi Postoperative Diagnosis: Same Procedure(s) Performed: Cystoscopy, right ureteroscopy with Holmium laser lithotripsy and stone basketing, right ureteral stent insertion Anesthesia: SACHI Surgeon: Domingo Boss Estimated Blood Loss (ml): 5 IV fluids (ml): 500 Pathology: other (Right renal calculi, sent for chemical analysis) Condition: stable Disposition: PACU Indications for Procedure: The patient is a 52-year-old white female with a history of urolithiasis. She reports mixed urinary incontinence. She reports occasional dysuria and hematuria. CT scan shows bilateral renal calculi, predominantly right sided. Operative Findings: Numerous right renal calculi, all removed via laser lithotripsy and/or stone basketing. Description of Procedure: The patient was taken to the operating room and placed in the dorsolithotomy position, with legs supported in Oscar stirrups. The external genitalia was prepped and draped sterilely. The 30 lens was used to introduce the 21-American White cystoscopic sheath through the urethra and into the bladder under direct vision. The bladder was examined in its entirety. Both ureteral orifices were normal anatomic location and configuration, and clear urine effluxed from both. No tumors or foreign bodies were seen. A 0.038 inch Glidewire was passed through the cystoscope. The right ureteral orifice was cannulated, and the Glidewire was advanced up to the renal pelvis. The cystoscope was removed, and an 11/13-American ureteral access catheter was passed over the wire, up to the proximal ureter. The flexible ureteroscope was then passed through the ureteral access catheter sheath, up to the renal pelvis. The 272 micron Holmium laser probe was passed through the ureteroscope, and each calyx was examined. Multiple calculi were identified measuring up to 5 mm in size. Some were adherent to the mucosa. The smaller calculi were simply removed using a 1.9- American 0 tip nitinol basket. The larger calculi were fragmented via laser lithotripsy, and the fragments removed via Stone basketing. All calculi/calculus fragments were removed. There was no evidence of mucosal perforation. The Glidewire was passed through the ureteral access catheter sheath, which was removed. The Glidewire was then backloaded into the cystoscope, which was passed into the bladder. A 26 cm, 4.8-American double-J ureteral stent was placed over the wire. Proper stent positioning was verified fluoroscopically and endoscopically. The bladder was emptied and the cystoscope removed. The patient tolerated the procedure well and was taken to the recovery room in stable condition. DALTON BURROUGHS Report: Procedure Acuity: Elective Stone Size and Location: Multiple right renal calculi up to 5 mm in size Ureteral Dilation: No Ureteral Access Sheath Used: Yes Stone Sent for Analysis: Yes All Stones/Fragments Were Removed with a Basket: Yes Complications: No Preoperative Antibiotics Given: Yes Stent Placed: Yes If Stent Placed, Was String Left Attached: No If Stent Placed, When is it to be Removed: 1 week Discharge Medications: Tamsulosin, tolterodine
[2023-02-18 15:50] VITALS: RESP 16; TEMP 97.1
[2023-02-18] MEDS ORDERED: hydrALAZINE HCL 20 MG/ML 1 ML VIAL IVP ONE (16:04)
--- NOTE | 2023-02-18 16:53 | FL ---
EXAMINATION TYPE: FL guidance operating room Intraoperative/procedural fluoroscopic services were pro vided. Total fluoroscopy time is 11.4 seconds with a total of 5 submitted images to PACS. Please see the operative/procedural note for further details. DAP: [id number] mGym2
[2023-02-18 16:57] VITALS: BP 150/98; PULSE 72
== END 2023-02-18 16:50 | disposition home or self-care (01) ==
LOC: OR 10:27
PROVIDERS: ATTEND Urology
DX: N20.0 Calculus of kidney (principal); I10 Essential (primary) hypertension; K58.9 Irritable bowel syndrome, unspecified; K21.9 Gastro-esophageal reflux disease without esophagitis; G43.909 Migraine, unspecified, not intractable, without status migrainosus; K90.0 Celiac disease; F17.200 Nicotine dependence, unspecified, uncomplicated; N39.3 Stress incontinence (female) (male); Z90.710 Acquired absence of both cervix and uterus; Z98.890 Other specified postprocedural states; Z79.899 Other long term (current) drug therapy; Z87.442 Personal history of urinary calculi; Z88.2 Allergy status to sulfonamides; Z88.1 Allergy status to other antibiotic agents
CPT/HCPCS: 82365; 74018; 52356; C2625; C1769; J2250; J0330; J0360; J1100; J0690; J2405; J2001; J3010; J3490; J1885; J2704

== ENCOUNTER → 2023-04-16 | Outpatient (CLI) | payer BC, OTHER ==
--- NOTE | 2023-04-16 16:29 | XR ---
EXAMINATION TYPE: XR chest 2V DATE OF EXAM: 04/16/2023 COMPARISON: None HISTORY: 52-year-old female J20.9, acute bronchitis, R05.9, cough TECHNIQUE: Frontal and lateral views FINDINGS: The cardiomediastinal silhouette, aorta, and pulmonary vasculature are within normal limits. Lungs an d pleural spaces are clear. IMPRESSION: No acute cardiopulmonary process.
== END | disposition home or self-care (01) ==
LOC: RADXRMAIN 10:22
PROVIDERS: ATTEND Family Medicine
DX: J20.9 Acute bronchitis, unspecified (principal); R05.9 Cough, unspecified
CPT/HCPCS: 71046

== ENCOUNTER → 2023-05-05 | Outpatient (CLI) | payer BC, OTHER ==
--- NOTE | 2023-05-06 08:24 | US ---
EXAMINATION TYPE: US kidneys/renal and bladder DATE OF EXAM: 05/05/2023 COMPARISON: CT 11/09/2022 CLINICAL INDICATION: Female, 52 years old with history of N20.0 CALCULUS OF KIDNEY; Calculus of kidne y. Patient had lithotripsy a few weeks ago. EXAM MEASUREMENTS: Right Kidney: 12.3 x 5.0 x 4.8 cm Left Kidney: 10.8 x 4.9 x 6.1 cm Right Kidney: Prominent renal pelvis. No calyceal dilatation to suggest hydronephrosis. Tiny 4 mm ech ogenic area at the lower pole could represent a prominent vascular reflector or tiny nonobstructive s tone. Left Kidney: Echogenic focus at the upper pole measuring 6 mm. No hydronephrosis. Bladder: Partially distended bladder shows no gross abnormality. Bilateral Jets seen: Yes IMPRESSION: 1. No hydronephrosis. 2. A possible punctate 4 mm stone in the right kidney and possible 6 mm stone in the left kidney.
== END | disposition home or self-care (01) ==
LOC: RADUSWWP 08:45
PROVIDERS: ATTEND Urology
DX: N20.0 Calculus of kidney (principal)
CPT/HCPCS: 76770

== ENCOUNTER → 2023-09-20 | Outpatient (CLI) | payer BC ==
--- NOTE | 2023-09-20 11:58 | XR ---
EXAMINATION TYPE: XR KUB DATE OF EXAM: 09/20/2023 HISTORY: Pain Comparison: 02/18/2023 Single KUB is submitted for interpretation. Overlying bowel content limits evaluation. Findings: Right renal calculi: None Visualized. Right ureteral calculi: None Visualized. Left renal calculi: None Visualized. Left ureteral calculi: None Visualized. Pelvic calcifications: Stable phleboliths are seen within the pelvic basin. Bowel gas pattern is unremarkable. No free air. No mass effects. IMPRESSION: 1. No discrete radiopaque calculi seen overlying either kidney or ureter. The overlying bowel content limits evaluation.
[2023-09-20 17:31] LABS: Anion Gap 14.2 mmol/L (4.00-12.00); Carbon Dioxide 24.8 mmol/L (21.6-31.8); Potassium 4.3 mmol/L (3.5-5.5)
== END | disposition home or self-care (01) ==
LOC: RADXRMAIN 11:28
PROVIDERS: ATTEND Urology
DX: N23 Unspecified renal colic (principal); R82.994 Hypercalciuria
CPT/HCPCS: 74018; 80051

== ENCOUNTER → 2023-12-17 | Outpatient (CLI) | payer BC ==
--- NOTE | 2023-12-20 11:26 | MM ---
Reason for Exam: Screening (asymptomatic). Last mammogram was performed 1 year(s) and 6 month(s) ago. Patient History: Menarche at age 14. First Full-Term at age 41. Late child-bearing (after 31). Hysterectomy at age 41. Patient has history of breast feeding. Hormonal Contraceptives for 27 years from age 14 until age 41. 2004, Bilateral Reduction. Risk Values: Sarina 5 year model risk: 1.5%. NCI Lifetime model risk: 11.8%. Prior Study Comparison: 03/28/2020 Bilateral Screening Mammogram, [facility]. 05/08/2021 Bilateral Screening Mammogram, [facility]. 06/05/2022 Bilateral MG 3D screening mammo w/cad, [facility]. Tissue Density: There are scattered areas of fibroglandular density. Findings: Analyzed By CAD. Right breast: There is no suspicious group of microcalcifications or new suspicious mass. Left breast: There is no suspicious group of microcalcifications or new suspicious mass. Overall Assessment: Negative, BI-RAD 1 Management: Screening Mammogram of both breasts in [address] [facility] will attempt to contact patient to return for supplemental views and ultrasound if indicated. Patient should continue monthly self-breast exams. A clinical breast exam by your physician is recommended on an annual basis. This exam should not preclude additional follow-up of suspicious palpable abnormalities. Note on Sarina scores and lifetime risk: 1. A Sarina score greater than 3% is considered moderate risk. If this is the case, consider specialist referral to assess eligibility for a risk reducing agent. 2. If overall lifetime risk for the development of breast cancer is 20% or higher, the patient may qualify for future screening with alternating mammogram and breast MRI. [facility], , 12/20/2023 11:22 AM. Electronically signed and approved by: Shelton Anguiano DO
== END | disposition home or self-care (01) ==
LOC: RADMAMWWP 07:32
PROVIDERS: ATTEND Obstetrics & Gynecology
CPT/HCPCS: 77063; 77067

== ENCOUNTER → 2023-12-17 | Outpatient (CLI) | payer BC ==
--- NOTE | 2023-12-17 13:31 | CT ---
EXAMINATION TYPE: CT abdomen pelvis wo con CT DLP: 665.4 mGycm, Automated exposure control for dose reduction was used. DATE OF EXAM: 12/17/2023 8:45 AM COMPARISON: Renal ultrasound 05/05/2023, KUB radiograph 09/20/2023, 02/18/2023, CT abdomen and pelvis CLINICAL INDICATION:Female, 53 years old with history of N23 RENAL COLIC; RENAL COLIC, reoccuring kid alberta stones. TECHNIQUE: Standard CT of the abdomen and pelvis without IV or oral contrast. Lack of IV or oral co ntrast limits evaluation of solid and hollow organ viscera. Coronal and sagittal reformats were perfo rmed. FINDINGS: LOWER CHEST: Unremarkable noncontrast appearance ABDOMEN LIVER: Unremarkable noncontrast appearance GALLBLADDER AND BILE DUCTS: Unremarkable noncontrast appearance PANCREAS: Unremarkable noncontrast appearance SPLEEN: Unremarkable noncontrast appearance ADRENAL GLANDS: Unremarkable noncontrast appearance. KIDNEYS AND URETERS: No evidence of hydronephrosis. Nonobstructive right renal lower pole 3 mm calcul us. Nonobstructive left upper pole 3 mm renal calculus. Additional nonobstructive left lower pole for m of a calculus with adjacent 2 mm calculus. There is decreased amount of renal calculi within both k idneys from prior CT. No perinephric fat stranding. No ureteral calculus. PELVIS BLADDER: Incompletely distended but grossly unremarkable. REPRODUCTIVE: Unremarkable noncontrast appearance ABDOMEN & PELVIS STOMACH AND BOWEL: Stomach and duodenum are unremarkable. No focal bowel wall thickening or surroundi ng inflammatory changes. Mild colonic stool burden. The appendix is within normal limits. No evidence of bowel obstruction. PERITONEUM: No evidence of pneumoperitoneum or free fluid. VASCULATURE: Mild atherosclerotic calcifications are present throughout the abdominal aorta and its b ranches. No evidence of aortic aneurysm. MUSCULOSKELETAL: No acute osseous abnormalities. Lower lumbar spine facet arthropathy. LYMPH NODES: No gross evidence for lymphadenopathy. SOFT TISSUE/ABDOMINAL WALL: Unremarkable IMPRESSION: 1. No evidence of obstructive uropathy. 2. Nonobstructive small bilateral renal calculi. Decreased amount of renal calculi when compared to p rior CT 11/09/2022. [facility], , 12/17/2023 1:29 PM
== END | disposition home or self-care (01) ==
LOC: RADCTMAIN 07:58
PROVIDERS: ATTEND Urology
DX: N23 Unspecified renal colic
CPT/HCPCS: 74176

== ENCOUNTER → 2023-12-23 | Outpatient (CLI) | payer BC ==
--- NOTE | 2023-12-23 09:59 | XR ---
EXAMINATION TYPE: XR chest 2V DATE OF EXAM: 12/23/2023 9:33 AM COMPARISON: 04/16/2023 CLINICAL INDICATION: Female, 53 years old with history of J16.8 PNEUMONIA, , TECHNIQUE: Frontal and lateral views FINDINGS: The cardiomediastinal silhouette, aorta, and pulmonary vasculature are within normal limits. Lungs an d pleural spaces are clear. Metallic orthopedic device within the lower cervical spine. IMPRESSION: No acute cardiopulmonary process. [facility], , 12/23/2023 9:57 AM
[2023-12-23 15:35] LABS: Basophils # (A) 0.03 X 10*3/uL (0.00-0.10); Basophils % (A) 0.2 %; Eosinophils # (A) 0 X 10*3/uL (0.04-0.35); Eosinophils % (A) 0 %; HCT 44.3 % (37.2-46.3); HGB 14.7 g/dL (12.0-15.0); Lymphocytes # (A) 1.28 X 10*3/uL (0.90-5.00); Lymphocytes % (A) 6.8 %; MCH 33.1 pg (27.0-32.0); MCHC 33.2 g/dL (32.0-37.0); MCV 99.8 FL (80.0-97.0); Mean Platelet Volume 9.5 FL (9.5-12.2); Monocytes # (A) 0.68 X 10*3/uL (0.20-1.00); Monocytes % (A) 3.6 %; NRBC Per 100 WBC 0 X 10*3/uL (0.00-0.01); Neutrophils # (A) 16.77 X 10*3/uL (1.80-7.70); Neutrophils % (A) 88.9 %; Platelet Count 468 X 10*3/uL (140-440); RBC 4.44 X 10*6/uL (4.10-5.20); WBC 18.85 X 10*3/uL (4.50-10.00)
[2023-12-24 04:49] LABS: Mycoplasma IgG Antibody (EIA) 1.6 INDEX (<=0.90); Mycoplasma IgM Antibody 0.27 INDEX (<=0.90)
== END | disposition home or self-care (01) ==
LOC: LABWHC1 08:47
PROVIDERS: ATTEND Family Medicine
DX: J16.8 Pneumonia due to other specified infectious organisms (principal)
CPT/HCPCS: 36415; 71046; 85025; 86738

== ENCOUNTER → 2024-01-14 | Outpatient (CLI) | payer BC ==
[2024-01-14 20:09] LABS: Basophils # (A) 0.05 X 10*3/uL (0.00-0.10); Basophils % (A) 0.6 %; Eosinophils # (A) 0.14 X 10*3/uL (0.04-0.35); Eosinophils % (A) 1.8 %; HCT 40.6 % (37.2-46.3); HGB 13.7 g/dL (12.0-15.0); Lymphocytes # (A) 1.96 X 10*3/uL (0.90-5.00); Lymphocytes % (A) 24.7 %; MCH 33.2 pg (27.0-32.0); MCHC 33.7 g/dL (32.0-37.0); MCV 98.3 FL (80.0-97.0); Mean Platelet Volume 9.3 FL (9.5-12.2); Monocytes # (A) 0.59 X 10*3/uL (0.20-1.00); Monocytes % (A) 7.4 %; NRBC Per 100 WBC 0 X 10*3/uL (0.00-0.01); Neutrophils # (A) 5.18 X 10*3/uL (1.80-7.70); Neutrophils % (A) 65.1 %; Platelet Count 400 X 10*3/uL (140-440); RBC 4.13 X 10*6/uL (4.10-5.20); RDW 11.9 % (11.5-14.5); WBC 7.95 X 10*3/uL (4.50-10.00)
[2024-01-15 02:46] LABS: BUN/Creat Ratio 13.67 Ratio (12.00-20.00); Blood Urea Nitrogen 12.3 mg/dL (9.0-27.0); Calcium 9.4 mg/dL (8.7-10.3); Carbon Dioxide 25.9 mmol/L (21.6-31.8); Chloride 99 mmol/L (96-109); Glucose 87 mg/dL (70-110); Potassium 3.9 mmol/L (3.5-5.5); Sodium 138 mmol/L (135-145)
== END | disposition home or self-care (01) ==
LOC: LABPAT 15:44
PROVIDERS: ATTEND Urology
DX: Z01.812 Encounter for preprocedural laboratory examination (principal); N20.0 Calculus of kidney; N20.1 Calculus of ureter
CPT/HCPCS: 80048; 85025; 87086

== ENCOUNTER 2024-01-21 07:44 | Day surgery (SDC) | payer BC ==
[2024-01-18 08:59] VITALS: BMI 31.9
--- NOTE | 2024-01-20 22:17 | P.GSHP ---
History of Present Illness H&P Date: 01/20/24 Chief Complaint: Right flank pain The patient is a 53-year-old white female with a history of calcium oxalate monohydrate urolithiasis. She underwent right ureteroscopy with laser lithotripsy and stone basketing to remove multiple right renal calculi measuring up to 5 mm in January 2023. She has experienced right flank pain for at least the past 6 months. She states that this is not positional. CT scan shows a 3 mm right lower pole renal calculus, and 2 left renal calculi measuring 2 to 3 mm in size. The patient has been advised that a calculus such as hers on the right would not be expected to cause severe pain. She does have a history of endometriosis and has considered this as a possibility, but she desires ureteroscopic removal of the calculus. - Cardiovascular Cardiovascular: Reports high blood pressure - Genitourinary (Female) Genitourinary: Reports flank pain, Reports kidney stones, Denies dysuria Past Medical History Past Medical History: GERD/Reflux, Hypertension Additional Past Medical History / Comment(s): stress incontinence,IBS, migraines, kidney stones History of Any Multi-Drug Resistant Organisms: None Reported Past Surgical History: Adenoidectomy, Breast Surgery, Hysterectomy, Joint Replacement, Orthopedic Surgery, Tonsillectomy Additional Past Surgical History / Comment(s): D & C, rosalba breast reduction, rosalba carpal tunnel, laproscopy x 2 for endometriosis, CYSTOSCOPY WITH LITHOTRIPSY, C5-C6 REPLACED, PARTIAL LT KNEE REPLACEMENT, COLONOSCOPY, HEMORRHOIDECTOMY Past Anesthesia/Blood Transfusion Reactions: No Reported Reaction Smoking Status: Former smoker - Past Family History Father Family Medical History: Hypertension Additional Family Medical History / Comment(s): Kidney stones. Mother Family Medical History: Hypertension Additional Family Medical History / Comment(s): Kidney stones. Medications and Allergies Home Medications Medication Instructions Recorded Confirmed Type Losartan [Cozaar] 50 mg PO QAM 03/25/15 01/18/24 History Montelukast Sodium [Singulair] 10 mg PO DAILY 03/25/15 01/18/24 History Progesterone, Micronized 200 mg PO HS 05/06/21 01/18/24 History [Progesterone] HYDROcodone/APAP 5-325MG [[place] 1 tab PO Q6HR PRN #24 tab 06/07/21 01/18/24 Rx 5-325] FLUoxetine HCL [Prozac] 40 mg PO HS 02/11/23 01/18/24 History Omeprazole 40 mg PO DAILY 02/11/23 01/18/24 History Phentermine HCl 37.5 mg PO AC-BRKFST 02/11/23 01/18/24 History Topiramate [Topamax] 25 mg PO BID 02/11/23 01/18/24 History clonazePAM [Klonopin] 0.5 mg PO HS 02/11/23 01/18/24 History Chlorthalidone [Hygroton] 25 mg PO DAILY 01/18/24 01/18/24 History Doxycycline Hyclate 100 mg PO DAILY 01/18/24 01/18/24 History Fexofenadine HCl [Bernie Allergy] 180 mg PO DAILY 01/18/24 01/18/24 History Allergies Allergy/AdvReac Type Severity Reaction Status Date / Time sulfamethoxazole Allergy Rash/Hives Verified 01/18/24 08:41 [From Bactrim] trimethoprim [From Bactrim] Allergy Rash/Hives Verified 01/18/24 08:41 VICRYL SUTURES Allergy BODY Uncoded 01/18/24 08:41 REJECTED THEM AFTER CERVICAL DISC REPLACEMENT Surgical - Exam - General well developed, well nourished, moderate distress - Respiratory normal respiratory effort - Psychiatric oriented to time, oriented to person, oriented to place, speech is normal, memory intact Results - Imaging CT scan - abdomen: report reviewed, image reviewed Assessment and Plan (1) Calculus of kidney Status: Acute Code(s): N20.0 - CALCULUS OF KIDNEY SNOMED Code(s): 92072014 Plan: Cystoscopy, right retrograde pyelogram, right ureteroscopy with Holmium laser lithotripsy and/or stone basketing, possible right ureteral stent insertion. The procedure has been reviewed in detail with the patient. She is aware of potential risks, which include anesthesia, bleeding, infection, ureteral injury, and inability to successfully remove the calculus.
[~2024-01-21 07:44] MED LIST changes: -ALPRAZolam 0.25 MG TAB PO PRN; -DEXAMETHASONE SOD PHOSPHATE 4 MG/ML 1 ML VIAL IV ONE; -IBUPROFEN 800 MG TAB PO PRN; -LACTATED RINGERS 1,000 ML IV ONE; +LIDOCAINE 1% (10MG/ML) FOR IV START INTRADERMA PRN; -LIDOCAINE 1% INJ 10MG/ML (20 ML MDV) ONE; -MIDAZOLAM 2 MG/2 ML VIAL IV PRN; -MIDAZOLAM 2 MG/2 ML VIAL ONE; -ONDANSETRON 4 MG/2 ML VIAL IVP ONE; -PROPOFOL 10 MG/ML 20 ML VIAL IV ONE; -SCOPOLAMINE 1 MG/72 HR PATCH TRANSDERM ONE; -VANCOMYCIN 1,500 MG in SODIUM CHLORIDE 0.9% 250 ML IVPB ONE; -VANCOMYCIN IV PER PHARMACY 1 EACH MISC MISCELLANE PRN; -fentaNYL (PF) 50 MCG/ML 2 ML AMP IVP ONE; +fentaNYL (PF) 50 MCG/ML 2 ML AMP IVP PRN; -fentaNYL (PF) 50 MCG/ML 2 ML AMP ONE
[2024-01-21] MEDS: IV FLUID CONTINUATION 1,000 ML IV ONE (08:05)
[2024-01-21] MEDS: LACTATED RINGERS 1,000 ML IV SCH (08:18)
[2024-01-21] MEDS: ONDANSETRON 4 MG/2 ML VIAL IVP ONE (08:18)
[2024-01-21] MEDS: DEXAMETHASONE SOD PHOSPHATE 4 MG/ML 1 ML VIAL IV ONE (08:18)
[2024-01-21 08:26] VITALS: TEMP 97.4
--- NOTE | 2024-01-21 08:42 | XR ---
EXAMINATION TYPE: XR KUB DATE OF EXAM: 01/21/2024 8:00 AM COMPARISON: 09/20/2023 CLINICAL INDICATION: Female, 53 years old with history of N20.0 right renal calculi, , FINDINGS: Moderate to large stool burden. Nonobstructive bowel gas pattern. Bowel content largely obscures the renal shadows. Similar tiny 3 mm calcification in the right side of the pelvis, probably inlet. IMPRESSION: Moderate to large stool burden, correlate for constipation. Bowel content largely obscures the renal shadows. 3 mm calcification in the right side of the pelvis is unchanged, possible phlebolith. [facility], , 01/21/2024 8:40 AM
[2024-01-21] MEDS: diphenhydrAMINE 50 MG/ML 1 ML VIAL IVP STA (10:02)
[2024-01-21] MEDS: MIDAZOLAM 2 MG/2 ML VIAL IV PRN (10:31)
[2024-01-21] MEDS ORDERED: PROPOFOL 10 MG/ML 20 ML VIAL IV ONE (11:22)
[2024-01-21] MEDS ORDERED: SUCCINYLCHOLINE CHLORIDE 200 MG/10 ML VIAL IV ONE (11:22)
[2024-01-21] MEDS ORDERED: HYDROCORTISONE SUCCINATE 100 MG/2 ML VIAL ONE (11:22)
[2024-01-21] MEDS ORDERED: PHENYLEPHRINE 10 MG/ML VIAL ONE (11:22)
[2024-01-21] MEDS ORDERED: fentaNYL (PF) 50 MCG/ML 2 ML AMP ONE (11:22)
[2024-01-21] MEDS ORDERED: MIDAZOLAM 2 MG/2 ML VIAL ONE (11:22)
[2024-01-21] MEDS ORDERED: LIDOCAINE 1% INJ 10MG/ML (20 ML MDV) ONE (11:22)
[2024-01-21] MEDS: IOPAMIDOL-370 100ML BTL MISCELLANE ONE (11:52)
--- NOTE | 2024-01-21 12:36 | P.OP ---
Date of Procedure: 01/21/24 Preoperative Diagnosis: Right renal calculus Postoperative Diagnosis: Right renal calculi Procedure(s) Performed: Cystoscopy, right retrograde pyelogram, right ureteroscopy with Holmium laser lithotripsy and stone basketing Anesthesia: SACHI Surgeon: Domingo Boss Estimated Blood Loss (ml): 0 IV fluids (ml): 500 Pathology: none sent Condition: stable Disposition: PACU Indications for Procedure: Cystoscopy, right retrograde pyelogram, right ureteroscopy with Holmium laser lithotripsy and/or stone basketing, possible right ureteral stent insertion. The procedure has been reviewed in detail with the patient. She is aware of potential risks, which include anesthesia, bleeding, infection, ureteral injury, and inability to successfully remove the calculus. Operative Findings: Several small right renal calculi, all removed via laser lithotripsy/stone basketing. Description of Procedure: The patient was taken to the operating room and placed in the dorsolithotomy position, with legs supported in Oscar stirrups. The external genitalia was prepped and draped sterilely. The 30 lens was used to introduce the 21-[place] White cystoscopic sheath through the urethra and into the bladder under direct vision. The bladder was examined in its entirety. Both ureteral orifices were normal anatomic location and configuration, and clear urine effluxed from both. No tumors or foreign bodies were seen. Using a 10 [place] cone-tip catheter, a right retrograde pyelogram was performed. The ureter was normal in course and caliber. There were no filling defects. There was no evidence of hydronephrosis, and no filling defects were seen within the right intrarenal collecting system. The cystoscope was removed, and the White boa flexible ureteroscope was passed into the bladder. The right ureteral orifice was cannulated, and the ureteroscope was slowly advanced under direct vision up to the right renal pelvis. Each calyx was examined. Within a lower pole calyx was a 3 to 4 mm calculus with a smaller calculus adjacent to it. Several tiny calculi were seen in other calyces. The 272 micron Holmium laser probe was passed through the ureteroscope, and lithotripsy was performed to fragment the larger of the 2 right lower pole calculi. Several tiny calculi seen within the calyces which were adherent to the mucosa were lasered. A 1.9 [place] 0 tip nitinol basket was then used to remove any remaining calculi, including the 3 right lower pole fragments. All calculi/calculus fragments were removed. Pullout ureteroscopy showed no evidence of ureteral trauma. The patient tolerated the procedure well and was taken to the recovery room in stable condition. [employer]IC [employer]OCKS Report: Procedure Acuity: Semi-Urgent Stone Size and Location: 3 to 4 mm, right lower pole Ureteral Dilation: No Ureteral Access Sheath Used: No Stone Sent for Analysis: No All Stones/Fragments Were Removed with a Basket: Yes Complications: No Preoperative Antibiotics Given: Yes Stent Placed: No Discharge Medications: [place]
[2024-01-21] MEDS: HYDROmorphone 0.5 MG/0.5 ML SYRINGE IVP PRN (12:41)
--- NOTE | 2024-01-21 13:01 | FL ---
EXAMINATION TYPE: FL urography retrograde DATE OF EXAM: 01/21/2024 FLUOROSCOPY RIGHT SIDE RENAL CALCULI FL TIME 8.4 SECONDS. DAP [id number]. [address] LY [facility], , 01/21/2024 12:58 PM
[2024-01-21 13:23] VITALS: BP 128/83; PULSE 86; RESP 18
== END 2024-01-21 13:46 | disposition home or self-care (01) ==
LOC: OR 07:44
PROVIDERS: ATTEND Urology
DX: N20.0 Calculus of kidney (principal); K21.9 Gastro-esophageal reflux disease without esophagitis; I10 Essential (primary) hypertension; K58.9 Irritable bowel syndrome, unspecified; K90.0 Celiac disease; M19.90 Unspecified osteoarthritis, unspecified site; Z90.710 Acquired absence of both cervix and uterus; Z96.653 Presence of artificial knee joint, bilateral; Z87.891 Personal history of nicotine dependence; Z82.49 Family history of ischemic heart disease and other diseases of the circulatory system; Z88.2 Allergy status to sulfonamides; Z88.1 Allergy status to other antibiotic agents; Z79.899 Other long term (current) drug therapy; Z79.890 Hormone replacement therapy
CPT/HCPCS: 74420; 74018; 52353; J2250; J1200; J1100; J0690; J2405; J1171; Q9967

== ENCOUNTER → 2024-01-31 | Outpatient (CLI) | payer BC ==
[2024-01-31 10:15] LABS: Basophils # (A) 0.08 X 10*3/uL (0.00-0.10); Eosinophils # (A) 0.12 X 10*3/uL (0.04-0.35); Eosinophils % (A) 1.5 %; HCT 42.1 % (37.2-46.3); HGB 14.3 g/dL (12.0-15.0); Lymphocytes # (A) 2.72 X 10*3/uL (0.90-5.00); Lymphocytes % (A) 34.6 %; MCH 32.6 pg (27.0-32.0); MCV 95.9 FL (80.0-97.0); Mean Platelet Volume 9.1 FL (9.5-12.2); Monocytes # (A) 0.85 X 10*3/uL (0.20-1.00); Monocytes % (A) 10.8 %; NRBC Per 100 WBC 0 X 10*3/uL (0.00-0.01); Neutrophils # (A) 4.07 X 10*3/uL (1.80-7.70); Neutrophils % (A) 51.8 %; Platelet Count 496 X 10*3/uL (140-440); RBC 4.39 X 10*6/uL (4.10-5.20); RDW 11.9 % (11.5-14.5); WBC 7.86 X 10*3/uL (4.50-10.00)
[2024-01-31 11:04] LABS: ALT 14 U/L (8-44); AST 16 U/L (13-35); Albumin 4.9 g/dL (3.8-4.9); Albumin/Globulin Ratio 2.13 Ratio (1.60-3.17); Alkaline Phosphatase 74 U/L (41-126); BUN/Creat Ratio 22.09 Ratio (12.00-20.00); Blood Urea Nitrogen 24.3 mg/dL (9.0-27.0); Calcium 10.4 mg/dL (8.7-10.3); Carbon Dioxide 29.9 mmol/L (21.6-31.8); Chloride 96 mmol/L (96-109); Chol/HDL Ratio 3.92 Ratio; Globulin 2.3 g/dL (1.6-3.3); Glucose 124 mg/dL (70-110); LDL Cholesterol,Calculated 176.8 mg/dL (0.0-131.0); Phosphorus 3.9 mg/dL (2.4-5.1); Potassium 4.4 mmol/L (3.5-5.5); Sodium 139 mmol/L (135-145); Total Bilirubin 0.4 mg/dL (0.3-1.2); Total Protein 7.2 g/dL (6.2-8.2)
== END | disposition home or self-care (01) ==
LOC: LABWHC1 07:26
PROVIDERS: ATTEND Family Medicine
DX: Z00.00 Encounter for general adult medical examination without abnormal findings (principal); F33.0 Major depressive disorder, recurrent, mild; F41.1 Generalized anxiety disorder; F98.8 Other specified behavioral and emotional disorders with onset usually occurring in childhood and adolescence; N20.0 Calculus of kidney; G47.00 Insomnia, unspecified; I10 Essential (primary) hypertension; Z87.891 Personal history of nicotine dependence
CPT/HCPCS: 36415; 80053; 80061; 82306; 83970; 84100; 84443; 85025

== ENCOUNTER 2024-03-06 08:32 | Emergency (ER) | payer BC ==
[2024-03-06 08:56] VITALS: TEMP 97.6
--- NOTE | 2024-03-06 09:48 | ED ---
General Adult HPI - General Chief complaint: Urogenital Stated complaint: kidney pain Time Seen by Provider: 03/06/24 08:40 Source: patient Mode of arrival: ambulatory Limitations: no limitations - History of Present Illness Initial comments: Dictation was produced using [employer] dictation software. please excuse any grammatical, word or spelling errors. Chief Complaint: 53-year-old female with history of kidney stones presents with right-sided flank pain History of Present Illness: Patient is a 53-year-old female states she has extensive history of kidney stones. Late last year she had surgery to remove multiple stones. States that for the last 2 days she has had severe right-sided flank pain. Patient states she has had accompanied nausea and vomiting. She texted her urologist stating stating that she was going to come to the emergency room. Denies any fever, chills or night sweats. Patient states that the pain is colicky similar to her usual kidney stone pain. The ROS documented in this emergency department record has been reviewed and confirmed by me. Those systems with pertinent positive or negative responses have been documented in the HPI. All other systems are other negative and/or noncontributory. - Related Data Home Medications Medication Instructions Recorded Confirmed Losartan [Cozaar] 50 mg PO QAM 03/25/15 01/18/24 Montelukast Sodium [Singulair] 10 mg PO DAILY 03/25/15 01/21/24 Progesterone, Micronized 200 mg PO HS 05/06/21 01/21/24 [Progesterone] FLUoxetine HCL [Prozac] 40 mg PO HS 02/11/23 01/21/24 Omeprazole 40 mg PO DAILY 02/11/23 01/21/24 Phentermine HCl 37.5 mg PO AC-BRKFST 02/11/23 01/18/24 Topiramate [Topamax] 25 mg PO BID 02/11/23 01/21/24 clonazePAM [Klonopin] 0.5 mg PO HS 02/11/23 01/21/24 Chlorthalidone [Hygroton] 25 mg PO DAILY 01/18/24 01/21/24 Doxycycline Hyclate 100 mg PO DAILY 01/18/24 01/21/24 Fexofenadine HCl [Bernie Allergy] 180 mg PO DAILY 11/26/24 11/29/24 Previous Rx's Medication Instructions Recorded HYDROcodone/APAP 5-325MG [[place] 1 tab PO Q6HR PRN #24 tab 06/07/21 5-325] HYDROcodone/APAP 5-325MG [[place] 1 - 2 tab PO Q6HR PRN #10 tab 01/21/24 5-325] Allergies Allergy/AdvReac Type Severity Reaction Status Date / Time sulfamethoxazole Allergy Rash/Hives Verified 03/06/24 08:51 [From Bactrim] trimethoprim [From Bactrim] Allergy Rash/Hives Verified 03/06/24 08:51 VICRYL SUTURES Allergy BODY Uncoded 03/06/24 08:51 REJECTED THEM AFTER CERVICAL DISC REPLACEMENT Review of Systems ROS Statement: Those systems with pertinent positive or pertinent negative responses have been documented in the HPI. ROS Other: All systems not noted in ROS Statement are negative. Past Medical History Past Medical History: Hypertension Additional Past Medical History / Comment(s): Kidney stones. Celiac disease. Endometriosis History of Any Multi-Drug Resistant Organisms: None Reported Past Surgical History: Adenoidectomy, Breast Surgery, Hysterectomy, Tonsillectomy Additional Past Surgical History / Comment(s): D & C, rosalba breast reduction, rosalba carpal tunnel, laproscopy x 2 for endometriosis, Past Anesthesia/Blood Transfusion Reactions: No Reported Reaction Past Psychological History: Depression Smoking Status: Never smoker Past Alcohol Use History: Occasional Past Drug Use History: None Reported - Past Family History Father Family Medical History: Hypertension Additional Family Medical History / Comment(s): Kidney stones. Mother Family Medical History: Hypertension Additional Family Medical History / Comment(s): Kidney stones. General Exam - General Exam Comments Initial Comments: PHYSICAL EXAM: General Impression: Alert and oriented x3, not in acute distress HEENT: Normocephalic atraumatic, extra-ocular movements intact, pupils equal and reactive to light bilaterally, mucous membranes moist. Cardiovascular: Heart regular rate and rhythm Chest: Able to complete full sentences, no retractions, no tachypnea Abdomen: abdomen soft, non-tender, non-distended, no organomegaly Musculoskeletal: Pulses present and equal in all extremities, no peripheral edema Motor: no focal deficits noted Neurological: CN II-XII grossly intact, no focal motor or sensory deficits noted Skin: Intact with no visualized rashes Psych: Normal affect and mood Limitations: no limitations Course Vital Signs 03/06/24 08:51 Temperature 97.6 F Pulse Rate 89 Respiratory 18 Rate Blood Pressure 120/90 O2 Sat by Pulse 99 Oximetry Medical Decision Making - Medical Decision Making Was pt. sent in by a medical professional or institution ([facility], [employer], urgent care, hospital, or intermediate...) When possible be specific @ -No Did you speak to anyone other than the patient for history (EMS, parent, family, police, friend...)? What history was obtained from this source @ -No Did you review nursing and triage notes (agree or disagree)? Why? @ -I reviewed and agree with nursing and triage notes Were old charts reviewed (outside hosp., previous admission, EMS record, old EKG, old radiological studies, urgent care reports/EKG's, intermediate records)? Report findings @ -No old charts were reviewed Differential Diagnosis (chest pain, altered mental status, abdominal pain women, abdominal pain men, vaginal bleeding, musculoskeletal, weakness, fever, dyspnea, syncope, headache, dizziness, GI bleed, back pain, seizure, CVA, palpatations, mental health)? @ -Differential Abdominal Pain Women: Appendicitis, Cholecystitis, diverticulosis, ischemic bowel, pancreatitis, hepatitis, UTI, gastroenteritis, AAA, incarcerated hernia, bowel obstruction, constipation, inflammatory bowel, hepatitis, peptic ulcer disease, splenic infarction, perforated viscus, vulvitis, ovarian torsion, PID, kidney stone, placenta abruption, this is not meant to be an all-inclusive list EKG interpreted by me (3pts min.). @ -None done X-rays interpreted by me (1pt min.). @ -None done CT interpreted by me (1pt min.). @ -CT ab pelvis shows no acute processes. U/S interpreted by me (1pt. min.). @ -None done What testing was considered but not performed or refused? (CT, X-rays, U/S, labs)? Why? @ -None What meds were considered but not given or refused? Why? @ -None Was smoking cessation discussed for >3mins.? @ -No Were there social determinants of health that impacted care today? How? (Homelessness, low income, unemployed, alcoholism, drug addiction, transportation, low edu. Level, literacy, decrease access to med. care, fpc, rehab)? @ -No Was there de-escalation of care discussed even if they declined (Discuss DNR or withdrawal of care, Hospice)? DNR status @ -No What co-morbidities impacted this encounter? (DM, HTN, Smoking, COPD, CAD, Cancer, CVA, ARF, Chemo, Hep., AIDS, mental health diagnosis, sleep apnea, morbid obesity)? @ -None Was patient admitted / discharged? Hospital course, mention meds given and route, prescriptions, significant lab abnormalities, going to OR and other pertinent info. @ -53-year-old female presents with right-sided flank pain. She has extensive history of kidney stones. Furthermore she goes on to tell me that she has history of endometriosis. Vital signs upon arrival are within acceptable limits. Patient well-appearing. Sitting comfortably at the bedside. Laboratory evaluation is unremarkable. CT shows no acute processes. Reevaluated bedside 11:55 AM found to be stable to condition. Patient will discharged advised follow-up with primary care doctor Did you discuss the management of the patient with other professionals (professionals i.e. , PA, G[employer] LEAK TESTER, lab, RT, psych nurse, director social, stretch press operator, teacher, tactical intelligence officer, case specialist)? Give summary @ -No Was critical care preformed (if so, how long)? @ -No Undiagnosed new problem with uncertain prognosis? @ -No Drug Therapy requiring intensive monitoring for toxicity (Heparin, Nitro, Insulin, Cardizem)? @ -No Were any procedures done? @ -No Diagnosis/symptom? Acute, or Chronic, or Acute on Chronic? Uncomplicated (without systemic symptoms) or Complicated (systemic symptoms)? @ -Flank pain Side effects of treatment? @ -No Exacerbation, Progression, or Severe Exacerbation? @ -No Poses a threat to life or bodily function? How? (Chest pain, [place], [place], pneumonia, PE, COPD, DKA, ARF, appy, cholecystitis, CVA, Diverticulitis, Homicidal, Suicidal, threat to staff... and all critical care pts) @ -No - Lab Data Result diagrams: 03/06/24 09:52 03/06/24 09:52 Lab Results 03/06/24 03/06/24 03/06/24 Range/Units 09:21 09:52 09:52 WBC 6.2 (3.8-10.6) k/uL RBC 4.10 (3.80-5.40) m/uL Hgb 13.0 (11.4-16.0) gm/dL Hct 38.7 (34.0-46.0) % MCV 94.5 (80.0-100.0) fL MCH 31.8 (25.0-35.0) pg MCHC 33.7 (31.0-37.0) g/dL RDW 11.7 (11.5-15.5) % Plt Count 349 (150-450) k/uL MPV 6.5 Neutrophils % 53 % Lymphocytes % 34 % Monocytes % 7 % Eosinophils % 2 % Basophils % 0 % Neutrophils # 3.3 (1.3-7.7) k/uL Lymphocytes # 2.1 (1.0-4.8) k/uL Monocytes # 0.4 (0-1.0) k/uL Eosinophils # 0.2 (0-0.7) k/uL Basophils # 0.0 (0-0.2) k/uL Sodium 135 L (137-145) mmol/L Potassium 3.2 L (3.5-5.1) mmol/L Chloride 92 L (98-107) mmol/L Carbon Dioxide 33 H (22-30) mmol/L Anion Gap 10 mmol/L BUN 19 H (7-17) mg/dL Creatinine 1.04 (0.52-1.04) mg/dL Est GFR (CKD-EPI)AfAm 72 (>60 ml/min/1.73 sqM) Est GFR (CKD-EPI)NonAf 62 (>60 ml/min/1.73 sqM) Glucose 98 (74-99) mg/dL Calcium 9.4 (8.4-10.2) mg/dL Total Bilirubin 0.6 (0.2-1.3) mg/dL AST 25 (14-36) U/L ALT 13 (4-34) U/L Alkaline Phosphatase 66 (38-126) U/L Total Protein 7.3 (6.3-8.2) g/dL Albumin 4.6 (3.5-5.0) g/dL Urine Color Light Yellow Urine Appearance Cloudy H (Clear) Urine pH 6.0 (5.0-8.0) Ur Specific [place] 1.018 (1.001-1.035) Urine Protein Trace H (Negative) Urine Glucose (UA) Negative (Negative) Urine Ketones Negative (Negative) Urine Blood Negative (Negative) Urine Nitrite Negative (Negative) Urine Bilirubin Negative (Negative) Urine Urobilinogen <2.0 (<2.0) mg/dL Ur Leukocyte Esterase Negative (Negative) Urine RBC 7 H (0-5) /hpf Urine WBC 6 H (0-5) /hpf Ur Squamous Epith Cells 14 H (0-4) /hpf Urine Bacteria Many H (None) /hpf Hyaline Casts 7 H (0-2) /lpf Urine Mucus Rare H (None) /hpf Disposition Clinical Impression: Flank pain Disposition: HOME SELF-CARE Condition: Good Instructions (If sedation given, give patient instructions): Flank Pain (ED) Is patient prescribed a controlled substance at d/c from ED?: No Referrals: Farhat Menjivar MD [Primary Care Provider] - 1-2 days Time of Disposition: 11:56
[2024-03-06 09:57] LABS: Appearance,Urine Cloudy (Clear); Bacteria,Urine Many /hpf; Bilirubin,Urine Negative (Negative); Blood,Urine Negative (Negative); Color,Urine Light Yellow; Glucose,Urine (UA) Negative (Negative); Hyaline Casts,Urine 7 /lpf (0-2); Ketones,Urine Negative (Negative); Leukocyte Esterase,Urine Negative (Negative); Mucus,Urine Rare /hpf; Nitrite,Urine Negative (Negative); Protein,Urine Trace (Negative); RBC,Urine 7 /hpf (0-5); Specific Gravity,Urine 1.018 (1.001-1.035); Squamous Epithelial Cell,Urine 14 /hpf (0-4); Urobilinogen,Urine <2.0 mg/dL (<2.0); WBC,Urine 6 /hpf (0-5)
[2024-03-06] MEDS: SODIUM CHLORIDE 0.9% 1,000 ML IV STA (09:57)
[2024-03-06 09:59] LABS: Basophils % (A) 0 %; Eosinophils # (A) 0.2 k/uL (0-0.7); Eosinophils % (A) 2 %; HCT 38.7 % (34.0-46.0); Lymphocytes # (A) 2.1 k/uL (1.0-4.8); Lymphocytes % (A) 34 %; MCH 31.8 pg (25.0-35.0); MCHC 33.7 g/dL (31.0-37.0); MCV 94.5 fL (80.0-100.0); Mean Platelet Volume 6.5; Monocytes # (A) 0.4 k/uL (0-1.0); Monocytes % (A) 7 %; Neutrophils # (A) 3.3 k/uL (1.3-7.7); Neutrophils % (A) 53 %; Platelet Count 349 k/uL (150-450); RDW 11.7 % (11.5-15.5); WBC 6.2 k/uL (3.8-10.6)
[2024-03-06] MEDS: MORPHINE SULFATE 4 MG/ML SYRINGE IVP PRN (09:59)
[2024-03-06 10:09] LABS: ALT 13 U/L (4-34); AST 25 U/L (14-36); African American GFR (CKD) 72 (>60 ml/min/1.73 sqM); Albumin 4.6 g/dL (3.5-5.0); Alkaline Phosphatase 66 U/L (38-126); Anion Gap 10 mmol/L; Blood Urea Nitrogen 19 mg/dL (7-17); Calcium 9.4 mg/dL (8.4-10.2); Carbon Dioxide 33 mmol/L (22-30); Chloride 92 mmol/L (98-107); Glucose 98 mg/dL (74-99); Non-African American GFR(CKD) 62 (>60 ml/min/1.73 sqM); Potassium 3.2 mmol/L (3.5-5.1); Sodium 135 mmol/L (137-145); Total Bilirubin 0.6 mg/dL (0.2-1.3); Total Protein 7.3 g/dL (6.3-8.2)
--- NOTE | 2024-03-06 11:07 | CT ---
EXAMINATION TYPE: CT abdomen pelvis wo con DATE OF EXAM: 03/06/2024 10:30 AM COMPARISON: None. CLINICAL INDICATION: Female, 53 years old with history of flank pain, history of kidney stones, flank pain, history of kidney stones TECHNIQUE: Axial images were obtained from above the diaphragm to the pubic rami in the axial plane a t 5 mm thick sections. Reconstructed images are reviewed on the computer in the coronal plane. CONTRAST: mL of . Study performed without Oral Contrast DLP: 607 mGycm, Automated exposure control for dose reduction was used. FINDINGS: Limited CT sections are obtained the lung bases. The lung bases are clear. CT ABDOMEN: Liver: Normal Spleen: Normal Pancreas: Normal Adrenal glands: The adrenal glands are normal. Gallbladder: Normal Kidneys: No masses are evident. No hydronephrosis is present. No cysts are present. There is a 0.2 cm nonobstructing renal stone inferior pole left kidney. There is a punctate mid left renal stone im age 59. There is a nonobstructing superior lateral renal stone measuring 0.4 cm. Aorta: Vascular calcification is within the aorta. Inferior vena cava: Normal. CT PELVIS: Loops of bowel within the abdomen and pelvis are normal. Mild fecal retention is within the ascending transverse and proximal descending colon. There are loops of bowel which are incompletely distend ed or lack oral contrast limiting their evaluation. Appendix: Normal as visualized. Urinary bladder: Normal. Genitourinary structures: Uterus and ovaries are not identified Osseous structures: No suspicious lytic or sclerotic lesions. Facet degenerative changes are within t he lumbar spine. IMPRESSION: 1. Nonobstructing left renal stones. 2. Mild fecal retention. [facility], , 03/06/2024 11:04 AM
[2024-03-06 12:03] VITALS: BP 142/91; PULSE 82; RESP 16
== END 2024-03-06 12:03 | disposition home or self-care (01) ==
LOC: EC 08:32
DX: N20.0 Calculus of kidney (principal); Z88.2 Allergy status to sulfonamides; Z88.1 Allergy status to other antibiotic agents; Z88.8 Allergy status to other drugs, medicaments and biological substances
CPT/HCPCS: 36415; 80053; 85025; 81001; 74176; 99284; 96374; 96361 ×2; J2270

== ENCOUNTER → 2024-05-05 | Outpatient (CLI) | payer BC ==
--- NOTE | 2024-05-05 16:48 | MR ---
INDICATION: Patient age:Female; 53 years old; Reason for study: M54.12 RADICULOPATHY, CERVICAL REGION M54.2; [facility]. COMPARISON: CT cervical spine 04/07/2021, MR cervical spine 01/10/2021, cervical spine radiograph 10/21. TECHNIQUE: Multi planar, multi sequence imaging was performed of the cervical spine. No Gadolinium wa s given. FINDINGS: Alignment: The cervical vertebral bodies have preserved heights. Alignment is within normal limits gi jh patient positioning. Bones: Postsurgical changes with disc hardware involving C5-C6. This creates susceptibility artifact which limits evaluation. The remaining bone signal is within normal limits. No abnormal STIR signal. Multilevel facet arthropathy. Cord: The spinal cord is unremarkable with regards to their signal intensity and morphology. Discs: Multilevel disc desiccation is present. C2-C3: No significant disc pathology. The spinal canal is patent. No neural foraminal stenosis. C3-C4: Broad-based disc bulge without significant effacement of the anterior thecal sac. Uncovertebra l joint hypertrophy with right-sided facet arthropathy. Moderate right neural foraminal stenosis. The left neural foramen is patent. C4-C5: Essentially nondiagnostic due to susceptibility artifact from disc hardware. C5-C6: Essentially nondiagnostic due to susceptibility artifact from disc hardware. C6-C7: No significant disc pathology. The spinal canal is patent. No neural foraminal stenosis. C7-T1: No significant disc pathology. The spinal canal is patent. No neural foraminal stenosis. Other: None. IMPRESSION: 1. Postsurgical changes with disc hardware at C5-C6. This creates susceptibility artifact which signi ficantly limits evaluation from C4 to C6. 2. Degenerative disc disease and facet arthropathy at C3-C4 as described above. [facility], , 05/05/2024 4:46 PM
== END | disposition home or self-care (01) ==
LOC: RADMRIMAIN 15:39
PROVIDERS: ATTEND Orthopaedic Surgery
DX: M47.22 Other spondylosis with radiculopathy, cervical region (principal); M50.11 Cervical disc disorder with radiculopathy, high cervical region
CPT/HCPCS: 72141

== ENCOUNTER → 2024-05-30 | Day surgery (SDC) | payer BC ==
[~2024-05-30] MED LIST changes: +HYDROcodone/APAP 5-325MG 1 EACH TAB PO PRN; -LIDOCAINE 1% (10MG/ML) FOR IV START INTRADERMA PRN; -fentaNYL (PF) 50 MCG/ML 2 ML AMP IVP PRN
[2024-05-30] MEDS: diazePAM 5 MG TAB PO STA (08:55)
[2024-05-30 09:39] VITALS: TEMP 98.4
--- NOTE | 2024-05-30 11:17 | CT ---
EXAMINATION TYPE: CT cervical spine w con DATE OF EXAM: 05/30/2024 COMPARISON: CT cervical spine April 07, 2021. MRI cervical spine May 05, 2024 CLINICAL INDICATION: Female, 53 years old with history of Z48.811, M54.2 CERVICALGIA, , pain TECHNIQUE: CT scan of the cervical spine is obtained with intrathecal contrast, axial images are obt ained, sagittal and coronal reformatted images are also reviewed. Automated Exposure Control for Dose Reduction was Utilized. Contrast: , patient injected with mL of ., (none if empty) FINDINGS: Cervical spine is visualized in its entirety from C1 through upper thoracic levels, demonst rates stable and satisfactory alignment. Prevertebral soft tissue appears within normal limits. The C1-C2 articulation is within normal limits on the coronal images. Postsurgical change at the C5-C6 e ndplate with metallic disc material is present. Vertebral body heights and disc space heights are sat isfactory above and below surgical levels. Satisfactory intrathecal injection of contrast. Spinal can al is grossly preserved with mild anterior effacement at the site of surgery C5-C6 level. Review of axial images shows no significant spinal canal stenosis. There is severe right-sided neural foraminal narrowing at C3-C4 level due to uncovertebral facet spurring axial image 37 and at right C 4-C5 level axial image 44. There is moderate to severe narrowing of right C5-C6 level due to uncovert ebral facet spurring. Thyroid gland is normal in appearance. Lung apices are clear without pneumothor ax. Surgical clips inferior to the right submandibular gland are noted. IMPRESSION: No significant spinal canal stenosis. Postsurgical changes C5-C6 level with satisfactory alignment. Multilevel significant right-sided uncovertebral facet degenerative changes are present. [facility], , 05/30/2024 11:15 AM
--- NOTE | 2024-05-30 11:23 | FL ---
EXAMINATION TYPE: FL myelogram cervical via lumbar puncture DATE: 05/30/2024 CLINICAL HISTORY: 53-year-old female Z48.811, M54.2 CERVICALGIA, continued neck pain and arm weakness . COMPLICATIONS: None SEDATION: 5 mg oral Versed was administered to the patient. The patient and the patient's vital signs were mon itored by qualified independent radiology personnel. TECHNIQUE: The procedure and potential risks were explained to patient and an informed consent was obtained with teach back. Site and side was verified. A time out was performed. The patient was placed prone on the fluoroscopy table and the L3-L4 level was localized and the skin was marked and was prepped and draped in the usual sterile fashion. Lidocaine was used for local anesthesia. Utilizing fluoroscopic guidance a 22-gauge, 5 inch spinal ne edle was placed through the skin and into the subarachnoid space. Clear CSF was visualized. A total of 10 mL Isovue M3 100 contrast material was administered into the intrathecal space. The table was manipulated to promote migration of contrast up towards the cervical spine. The patient tolerated the procedure well and was sent to the CT scanner suite in satisfactory conditi on. The estimated blood loss was minimal. The patient's condition was unchanged following the procedure. Fluoroscopy time: 23 seconds Total images: 9. Total DAP: 50 mGycm2 IMPRESSION: Successful cervical myelogram via lumbar puncture. CT cervical myelogram to follow. [facility], , 05/30/2024 11:20 AM
[2024-05-30 11:32] VITALS: RESP 16
[2024-05-30 14:05] VITALS: BP 125/79; PULSE 82
== END ==
LOC: RADPROMAIN 07:23
PROVIDERS: ATTEND Orthopaedic Surgery
DX: M54.2 Cervicalgia (principal); Z48.811 Encounter for surgical aftercare following surgery on the nervous system
CPT/HCPCS: 62302; 72126; Q9967

== ENCOUNTER → 2024-06-02 | Outpatient (CLI) | payer BC ==
--- NOTE | 2024-06-03 22:02 | CT ---
EXAMINATION TYPE: CT brain wo/w con DATE OF EXAM: 06/02/2024 8:06 AM COMPARISON: None. CLINICAL INDICATION: Female, 53 years old with history of R53.83 OTHER FATIGUE R53.1 WEAKNESS, R/O AU TOIMMUNE TECHNIQUE: CT of the brain is performed utilizing 3 mm thick sections through the posterior fossa and 3 mm thick sections through the remaining calvarium. Study is performed within 24 hours of arrival to the hospital. Contrast used:100 ML mL of Isovue 300 without and with IV Contrast, (none if empty) CT DLP: 2404 mGycm, Automated exposure control for dose reduction was used. FINDINGS: No abnormal hyperdensity is present to suggest an acute intracranial hemorrhage. No mass lesion is evident. No acute infarcts are evident. No abnormal enhancement is evident. Ventricles and sulci are appropriate for the patient age. There is a retention cyst within the inferior left maxillary sinus. Minimal mucosal thickening is wit hin the mid right ethmoid air cell. Remaining paranasal sinuses and mastoid air cells are clear. IMPRESSION: 1. No acute intracranial process pre or post contrast CT brain. Follow up MRI can be performed as cli nically indicated. [facility], , 06/03/2024 10:00 PM
== END | disposition home or self-care (01) ==
LOC: RADCTMAIN 07:27
PROVIDERS: ATTEND Family Medicine
DX: R53.83 Other fatigue (principal); R53.1 Weakness; F48.8 Other specified nonpsychotic mental disorders; M79.18 Myalgia, other site; R20.2 Paresthesia of skin
CPT/HCPCS: 70470; Q9967